=== PATIENT | male | born 1960 | race Caucasian/White ===

== ENCOUNTER → 2023-09-27 08:10 | Outpatient (REF) | payer OTHER, SELFPAY | LOC: DHCBC MAIN 08:10 | PROVIDERS: ATTENDING PHYSICIAN Internal Medicine Cardiovascular Disease; FAMILY PHYSICIAN Internal Medicine | DX: I10 Essential (primary) hypertension (principal) | CPT/HCPCS: 93306 ==

== ENCOUNTER 2023-12-24 13:51 | Inpatient (IN) | payer OTHER, SELFPAY ==
[2023-12-24] VITALS (39 sets, daily range): BP systolic 74–128; BP diastolic 40–107; BMI 26.3; BMI 26.9
[2023-12-24 11:31] LABS: Glucose - Point of Care 145 mg/dl (70-99)
--- NOTE | 2023-12-24 11:31 | ED.GENMED ---
History of Present Illness
<Elio Benson PA-C - Last Filed: 12/24/23 15:44>
General
Chief Complaint: Abdominal Symptoms
Time Seen by Provider: 12/24/23 11:23
Travel History
Have you had any contact with someone who has COVID-19?: No
Do you have any symptoms of coronavirus? Fever > 100 degrees, chills, cough, shortness of breath, sore throat, loss of taste or smell, muscle aches, or headache?: No
History of Present Illness
History of Present Illness:
63-year-old male with history of hypertension presents to the emergency department for evaluation of abdominal pain as well as intractable vomiting and diarrhea for the past 3 days. He states that he apparently began vomiting after eating because
of the on Sunday. Diarrhea began shortly thereafter. Has not been out of tolerating p.o. food or fluids. Has been trying to take his blood pressure medication vomiting after each dose. Currently reporting right upper quadrant abdominal pain. On
arrival to the ED he is notably pale and diaphoretic, hypotensive in triage.
Review of Systems
<Elio Benson PA-C - Last Filed: 12/24/23 15:44>
Review of Systems
Allergies reviewed?: Yes
All Other Systems: ROS reviewed and negative except as documented in HPI and ROS
Phy Exam
<Elio Benson PA-C - Last Filed: 12/24/23 15:44>
Physical Exam
Physical Exam:
GEN: Pale, diaphoretic, toxic appearing
Eyes: PERRLA, no scleral icterus
HENT: NCAT, oral mucosa dry
Lungs: Tachypnea, lungs clear to auscultation bilaterally
Cardiac: Tachycardic, regular
Abdomen: Peritonitic abdomen, tender throughout but focal tenderness to the right upper quadrant
Neuro: AO x 3
MSK: No gross deformity or ecchymosis. No edema. No digital clubbing
Skin: No rashes, petechiae. Generally pale
Psych: Calm, cooperative, proper hygiene
Course
<Elio Benson PA-C - Last Filed: 12/24/23 15:44>
Orders/Labs/Results
Orders:
Orders
12/24/23 Lunch
NPO
Allow oral meds: No
Allow clear liquids: No
Comment: mouth swabs for comfort
12/24/23 11:27
Electrocardiogram (*1) Urgent
Reason for Study: Other
Other Reason for Exam: sepsis
EKG- Treatment ONCE
Lactated Ringers [Lr] 2,000 ml IV BOLUS
Ondansetron Injectable [Zofran] 4 mg IV NOW STA
12/24/23 11:41
Type+Screen Urgent
Complete Blood Count/With Diff Urgent
Comprehensive Metabolic Panel Urgent
Lactic Acid Q4H
Comment: CANCEL 2nd LACTIC ACID IF 1st LACTIC ACID IS LESS THAN 2
Prothrombin Time Urgent
Blood Culture Q30M
ALESHIA Source: Blood/Venous
Specimen Description:
Blood Culture Q30M
ALESHIA Source: Blood/Venous
Specimen Description:
12/24/23 11:44
CT Abd/Pel (IV only)-[facility] only Urgent
Comment:
Reason For Exam: abd pain/vomiting/rigid abdomen
12/24/23 12:08
Piperacillin/Tazo 3.375 Gram [Zosyn] 3.375 gram in 50 ml IV NOW
12/24/23 12:27
Lactated Ringers [Lr] 750 ml IV BOLUS
12/24/23 12:35
Fentanyl Citrate/Pf [Sublimaze] 75 mcg IV NOW STA
12/24/23 12:39
Ondansetron Injectable [Zofran] 4 mg .ROUTE .STK-MED ONE
12/24/23 12:49
Ondansetron Injectable [Zofran] 4 mg IV NOW STA
12/24/23 12:53
Lactated Ringers [Lr] 1,000 ml IV BOLUS
12/24/23 13:00
NORepinephrine 4 MG/250 ML [Levophed] 4 mg in 250 ml IV PER PROTOCOL
Initial dose in mcg/min, then titrate:: 2
Titrate to keep:: MAP > 65 mmHg
Titrate by mcg/min:: 1-2 mcg/min
Frequency of titrations (minutes):: 5
Maximum dose in ICU in mcg/min:: 30
Maximum dose in IMU in mcg/min:: 8
Maximum dose in IVU in mcg/min:: 4
Begin to taper infusion when:: Remained at goal for 4hrs
Taper by mcg/min:: 1-2 mcg/min
Frequency of taper (minutes) if patient maintains goal:: 30
Taper to off?: Yes
If infusion off & no longer maintaining goal:: Contact Provider
12/24/23 13:02
Admit/Transfer Patient As Directed
Co-Sign Provider:
Level of Care: Inpatient admission
Assign to:: ICU
Physician / Group: Bl[facility]
Diagnosis: perforated appendicitis, ESTEFANÍA, septic shock.
Reason for Hospitalization: perforated appendicitis, ESTEFANÍA, septic shock - IV fluids, pressors, IV abx, surgery
Expected length of stay greater than two midnights?: Yes
ELOS- Estimated Length of Stay in days: 5
I certify the patient meets the requirements for IP care: Yes
12/24/23 13:04
Code Status As Directed
Resuscitation Status: Full Code
12/24/23 13:57
Bisacodyl [Dulcolax] 10 mg RECTAL [id number] PRN
Docusate W/Senna [Senokot-S] 1 tablet PO BIDPRN PRN
HYDROmorphone [Dilaudid] 0.5 mg IV Q4HPRN PRN
Polyethylene Glycol Powder [Miralax] 17 grams PO DAILYPRN PRN
12/24/23 13:57
Order Checker Consult Routine
Consulting Provider: Toshia Rutherford
Was physician already notified: Yes
SURGICAL CONSULT Routine
Consulting Provider: Edgar Hannah
Was physician already notified: Yes
Activity As Directed
Activity Level: As Tolerated
Bladder Scan As Directed
Follow Bladder Retention/Intermittent Cath Algorithm?: Yes
PRN if no void in __ hours: 6
Frequency: Per Retention Algorithm
If Bladder Scan Result >: 400
then:: Straight cath
Straight Cath As Directed
Frequency: Per Retention Algorithm
Additional Instructions: straight cath as needed per acute urinary retention algorithm for 24 hrs
Additional Instructions: for bladder scan greater than 400 mL
Vital Signs As Directed
Frequency: Per unit guidelines
DX Deep Vein Thrombosis Video Routine
12/24/23 14:00
Lactated Ringers [Lr] 1,000 ml IV 125 mls/hr
12/24/23 14:43
Urinalysis Reflex To Culture Urgent
Date Specimen was Collected: 12/24/23
Time Specimen was Collected: 14:31
12/24/23 14:49
Lactic Acid Q4H
Comment: CANCEL 2nd LACTIC ACID IF 1st LACTIC ACID IS LESS THAN 2
12/24/23 14:50
Basic Metabolic Panel Routine
12/24/23 20:00
Heparin 5,000 units SC Q12
Piperacillin/Tazo 2.25 Gram [Zosyn] 2.25 grams in 50 ml IV Q8H
12/25/23 06:00
Basic Metabolic Panel IN AM
Complete Blood Count/No Diff IN AM
12/26/23 06:00
Basic Metabolic Panel IN AM
Complete Blood Count/No Diff IN AM
12/27/23 06:00
Basic Metabolic Panel IN AM
Complete Blood Count/No Diff IN AM
12/28/23 06:00
Basic Metabolic Panel IN AM
Complete Blood Count/No Diff IN AM
12/29/23 06:00
Basic Metabolic Panel IN AM
Complete Blood Count/No Diff IN AM
12/30/23 06:00
Basic Metabolic Panel IN AM
Complete Blood Count/No Diff IN AM
12/31/23 06:00
Basic Metabolic Panel IN AM
Complete Blood Count/No Diff IN AM
Abnormal Lab Results
12/24/23 12/24/23
11:29 11:41
WBC 18.8 H 10^3/uL
(4.8-10.8)
MPV 11.1 H fL
(7.4-10.4)
Abs Immat Gran (auto) 0.2 H 10^3/uL
(0-0.05)
Absolute Neuts (auto) 17.1 H 10^3/uL
(1.4-6.5)
Absolute Lymphs (auto) 0.9 L 10^3/uL
(1.2-3.4)
Absolute Monos (auto) 0.7 H 10^3/uL
(0.1-0.6)
Immature Gran % 0.8 H %
(0-0.5)
Neutrophils % 90.7 H %
(42.2-75.2)
Lymphocytes % 4.6 L %
(20.5-51.1)
PT 17.3 H Sec
(11.4-14.6)
Sodium 134 L mmol/L
(135-145)
Chloride 91 L mmol/L
(98-107)
BUN 61 H mg/dl
(9-20)
Creatinine 6.5 H* mg/dL
(0.7-1.3)
Glucose 151 H mg/dl
(70-99)
Lactic Acid 3.9 H mmol/L
(0.7-2.0)
POC Glucose 145 H mg/dl
(70-99)
12/24/23 11:41
12/24/23 11:41
Vital Signs
Initial and Last Documented VS:
Initial Vital Signs
Pulse BP Pulse Ox
118 74/40 97
12/24/23 11:18 12/24/23 11:18 12/24/23 11:18
Last Documented Vital Signs
Temp Pulse Resp BP Pulse Ox
98.3 F 94 22 107/55 94
12/24/23 15:41 12/24/23 15:29 12/24/23 15:29 12/24/23 15:29 12/24/23 15:29
<Kelvin Ray MD - Last Filed: 12/24/23 14:10>
Orders/Labs/Results
Orders:
Orders
12/24/23 Lunch
NPO
Allow oral meds: No
Allow clear liquids: No
Comment: mouth swabs for comfort
12/24/23 11:27
Electrocardiogram (*1) Urgent
Reason for Study: Other
Other Reason for Exam: sepsis
EKG- Treatment ONCE
Lactated Ringers [Lr] 2,000 ml IV BOLUS
Ondansetron Injectable [Zofran] 4 mg IV NOW STA
12/24/23 11:41
Type+Screen Urgent
Complete Blood Count/With Diff Urgent
Comprehensive Metabolic Panel Urgent
Lactic Acid Q4H
Comment: CANCEL 2nd LACTIC ACID IF 1st LACTIC ACID IS LESS THAN 2
Prothrombin Time Urgent
Blood Culture Q30M
ALESHIA Source: Blood/Venous
Specimen Description:
Blood Culture Q30M
ALESHIA Source: Blood/Venous
Specimen Description:
12/24/23 11:44
CT Abd/Pel (IV only)-[facility] only Urgent
Comment:
Reason For Exam: abd pain/vomiting/rigid abdomen
12/24/23 12:08
Piperacillin/Tazo 3.375 Gram [Zosyn] 3.375 gram in 50 ml IV NOW
12/24/23 12:27
Lactated Ringers [Lr] 750 ml IV BOLUS
12/24/23 12:35
Fentanyl Citrate/Pf [Sublimaze] 75 mcg IV NOW STA
12/24/23 12:39
Ondansetron Injectable [Zofran] 4 mg .ROUTE .STK-MED ONE
12/24/23 12:49
Ondansetron Injectable [Zofran] 4 mg IV NOW STA
12/24/23 12:53
Lactated Ringers [Lr] 1,000 ml IV BOLUS
12/24/23 13:00
NORepinephrine 4 MG/250 ML [Levophed] 4 mg in 250 ml IV PER PROTOCOL
Initial dose in mcg/min, then titrate:: 2
Titrate to keep:: MAP > 65 mmHg
Titrate by mcg/min:: 1-2 mcg/min
Frequency of titrations (minutes):: 5
Maximum dose in ICU in mcg/min:: 30
Maximum dose in IMU in mcg/min:: 8
Maximum dose in IVU in mcg/min:: 4
Begin to taper infusion when:: Remained at goal for 4hrs
Taper by mcg/min:: 1-2 mcg/min
Frequency of taper (minutes) if patient maintains goal:: 30
Taper to off?: Yes
If infusion off & no longer maintaining goal:: Contact Provider
12/24/23 13:02
Admit/Transfer Patient As Directed
Co-Sign Provider:
Level of Care: Inpatient admission
Assign to:: ICU
Physician / Group: Bl[facility] Rosas - Hospitalists
Diagnosis: perforated appendicitis, ESTEFANÍA, septic shock.
Reason for Hospitalization: perforated appendicitis, ESTEFANÍA, septic shock - IV fluids, pressors, IV abx, surgery
Expected length of stay greater than two midnights?: Yes
ELOS- Estimated Length of Stay in days: 5
I certify the patient meets the requirements for IP care: Yes
12/24/23 13:04
Code Status As Directed
Resuscitation Status: Full Code
12/24/23 13:57
Bisacodyl [Dulcolax] 10 mg RECTAL [id number] PRN
Docusate W/Senna [Senokot-S] 1 tablet PO BIDPRN PRN
HYDROmorphone [Dilaudid] 0.5 mg IV Q4HPRN PRN
Polyethylene Glycol Powder [Miralax] 17 grams PO DAILYPRN PRN
12/24/23 13:57
Order Checker Consult Routine
Consulting Provider: Toshia Rutherford
Was physician already notified: Yes
SURGICAL CONSULT Routine
Consulting Provider: Edgar Hannah
Was physician already notified: Yes
Activity As Directed
Activity Level: As Tolerated
Bladder Scan As Directed
Follow Bladder Retention/Intermittent Cath Algorithm?: Yes
PRN if no void in __ hours: 6
Frequency: Per Retention Algorithm
If Bladder Scan Result >: 400
then:: Straight cath
Straight Cath As Directed
Frequency: Per Retention Algorithm
Additional Instructions: straight cath as needed per acute urinary retention algorithm for 24 hrs
Additional Instructions: for bladder scan greater than 400 mL
Vital Signs As Directed
Frequency: Per unit guidelines
DX Deep Vein Thrombosis Video Routine
12/24/23 14:00
Lactated Ringers [Lr] 1,000 ml IV 125 mls/hr
12/24/23 14:43
Urinalysis Reflex To Culture Urgent
Date Specimen was Collected: 12/24/23
Time Specimen was Collected: 14:31
12/24/23 14:49
Lactic Acid Q4H
Comment: CANCEL 2nd LACTIC ACID IF 1st LACTIC ACID IS LESS THAN 2
12/24/23 14:50
Basic Metabolic Panel Routine
12/24/23 20:00
Heparin 5,000 units SC Q12
Piperacillin/Tazo 2.25 Gram [Zosyn] 2.25 grams in 50 ml IV Q8H
12/25/23 06:00
Basic Metabolic Panel IN AM
Complete Blood Count/No Diff IN AM
12/26/23 06:00
Basic Metabolic Panel IN AM
Complete Blood Count/No Diff IN AM
12/27/23 06:00
Basic Metabolic Panel IN AM
Complete Blood Count/No Diff IN AM
12/28/23 06:00
Basic Metabolic Panel IN AM
Complete Blood Count/No Diff IN AM
12/29/23 06:00
Basic Metabolic Panel IN AM
Complete Blood Count/No Diff IN AM
12/30/23 06:00
Basic Metabolic Panel IN AM
Complete Blood Count/No Diff IN AM
12/31/23 06:00
Basic Metabolic Panel IN AM
Complete Blood Count/No Diff IN AM
Abnormal Lab Results
12/24/23 12/24/23
11:29 11:41
WBC 18.8 H 10^3/uL
(4.8-10.8)
MPV 11.1 H fL
(7.4-10.4)
Abs Immat Gran (auto) 0.2 H 10^3/uL
(0-0.05)
Absolute Neuts (auto) 17.1 H 10^3/uL
(1.4-6.5)
Absolute Lymphs (auto) 0.9 L 10^3/uL
(1.2-3.4)
Absolute Monos (auto) 0.7 H 10^3/uL
(0.1-0.6)
Immature Gran % 0.8 H %
(0-0.5)
Neutrophils % 90.7 H %
(42.2-75.2)
Lymphocytes % 4.6 L %
(20.5-51.1)
PT 17.3 H Sec
(11.4-14.6)
Sodium 134 L mmol/L
(135-145)
Chloride 91 L mmol/L
(98-107)
BUN 61 H mg/dl
(9-20)
Creatinine 6.5 H* mg/dL
(0.7-1.3)
Glucose 151 H mg/dl
(70-99)
Lactic Acid 3.9 H mmol/L
(0.7-2.0)
POC Glucose 145 H mg/dl
(70-99)
12/24/23 11:41
12/24/23 11:41
Vital Signs
Initial and Last Documented VS:
Initial Vital Signs
Pulse BP Pulse Ox
118 74/40 97
12/24/23 11:18 12/24/23 11:18 12/24/23 11:18
Last Documented Vital Signs
Temp Pulse Resp BP Pulse Ox
98.3 F 94 22 107/55 94
12/24/23 15:41 12/24/23 15:29 12/24/23 15:29 12/24/23 15:29 12/24/23 15:29
<Elio Benson PA-C - Last Filed: 12/24/23 15:44>
MDM/Problems Addressed
MDM/Problems Addressed:
63-year-old male presents the emergency department Acutely ill with a peritonitic abdomen, workup reveals acute perforated appendicitis with paralytic ileus. NG tube was placed for decompression. The patient received aggressive IV fluid
resuscitation was started promptly on vasopressors due to acute kidney injury that is likely hypovolemic shock in nature. General surgery was made aware, patient was taken for urgent operative intervention and admitted to the intensive care unit
<Elio Benson PA-C - Last Filed: 12/24/23 15:44>
*Critical Care Note
Total Time (30-74mins, 75-104mins- exclusive of procedures): 85 minutes
comment:
Critical care time: 85 minutes
Critical care time was exclusive of: Separately billable procedures, treating other patients, and teaching time
Critical care was necessary to treat or prevent imminent or life-threatening deterioration of the following conditions: Acute perforated appendicitis/septic shock
Critical care time spent personally by me on the following activities:
[x] Review of old charts
[x] Obtaining history from patient or surrogate
[x] Ordering and review of the laboratory studies
[x] Ordering and review of radiographic studies
[x] Ordering and performing treatments and interventions
[x] Patient patient's response to treatment
[x] Development of treatment plan with patient or surrogate
ED Attending Note
<Elio Benson PA-C - Last Filed: 12/24/23 15:44>
-
Portions of this chart may have been created with voice recognition software.� Occasional wrong word or��sound alike� substitutions may have occurred due to the inherent limitations of voice recognition software.
<Kelvin Ray MD - Last Filed: 12/24/23 14:10>
ED Attending Note
I performed the substantive portion of visit, reviewed & personally made and approve the management plan that is documented in note by myself or ZACHARY.: Yes
ED Attending Note:
History, exam, and CT scan consistent with perforated appendix. Patient given multiple boluses of fluids, secondary to severe hypotension, likely secondary to dehydration from ongoing symptoms, as reflected in his blood work. Initial hypotension
initially improved with IV fluids. However, patient afterwards noted to have decreased blood pressure, requiring start of Levophed for blood pressure support.
Surgery, Dr. Hannah, notified. Pt will be admitted to ICU.
Discharge Plan
Departure
Patient Disposition: Admit
Date of Disposition: 12/24/23
Time of Disposition: 12:27
Admit to: ICU
Presentation/result/management discussed w/ accepting MD/DO: Hospitalist
Discharge Problem:
Acute perforated appendicitis, Paralytic ileus, Acute renal failure, Acidosis, lactic
Interventions
Interventions:
*Risk Screen - Suicide Last Done: 12/24/23 13:23
*General Assessment Last Done: 12/24/23 13:23
*Neglect/Abuse Screening Last Done: 12/24/23 13:23
ED- Fall Risk Assessment Last Done: 12/24/23 13:23
*ED COVID-19 Vaccine History Last Done: 12/24/23 15:22
*Nursing Disposition Last Done: 12/24/23 14:12
FB-Wrgyiq-Yulvcapxnm Assessment Last Done: 12/24/23 13:23
Discharge Date and Time
Discharge Date/Time: 12/24/23 14:15
[2023-12-24] MEDS: LR 2000 IV (11:43)
[2023-12-24] MEDS: ZOFRAN 4 MG IV ×2 (11:43→12:49)
[2023-12-24 11:52] LABS: % Basophils 0.3 % (0-2); % Immature Granulocytes 0.8 % (0-0.5); % Lymphocytes 4.6 % (20.5-51.1); % Monocytes 3.6 % (1.7-9.3); % Neutrophils 90.7 % (42.2-75.2); Absolute Basophils 0.1 10^3/uL (0-0.2); Absolute Immature Granulocytes 0.2 10^3/uL (0-0.05); Absolute Lymphocytes 0.9 10^3/uL (1.2-3.4); Absolute Monocytes 0.7 10^3/uL (0.1-0.6); Absolute Neutrophils 17.1 10^3/uL (1.4-6.5); Hematocrit 40.9 % (39.0-52.0); Hemoglobin 14.7 g/dL (13.0-18.0); Mean Corp Hgb Conc. 35.9 g/dL (33.0-37.0); Mean Corpuscular Hgb 30.8 pg (27.0-31.0); Mean Corpuscular Volume 85.7 fL (80.0-94.0); Mean Platelet Volume 11.1 fL (7.4-10.4); Nucleated Red Blood Cells % 0 % (-); Platelet Count 188 10^3/uL (130-400); Red Blood Cell Count 4.77 10^6/uL (4.70-6.10); Red Cell Dist. Width 13.3 % (11.5-14.5); White Blood Cell Count 18.8 10^3/uL (4.8-10.8)
[2023-12-24 12:03] LABS: INR 1.44; PT 17.3 Sec (11.4-14.6)
[2023-12-24 12:04] LABS: Lactic Acid 3.9 mmol/L (0.7-2.0)
[2023-12-24 12:13] LABS: ALT (SGPT) 28 U/L (0-50); AST (SGOT) 38 U/L (17-59); Albumin 4.6 g/dl (3.5-5.0); Alkaline Phosphatase 56 U/L (38-126); Blood Urea Nitrogen 61 mg/dl (9-20); Calcium 9.4 mg/dl (8.4-10.2); Carbon Dioxide 25 mmol/L (22-30); Chloride 91 mmol/L (98-107); Glucose 151 mg/dl (70-99); Potassium 4.6 mmol/L (3.5-5.1); Sodium 134 mmol/L (135-145); Total Bilirubin 0.9 mg/dl (0.2-1.3); Total Protein 7.8 g/dl (6.3-8.2); eGFR 8.89
[2023-12-24] MEDS: ZOSYN 50 IV ×3 (12:34→23:13)
[2023-12-24] MEDS: SUBLIMAZE 75 MCG IV (12:43)
--- NOTE | 2023-12-24 12:51 | HPS.HSE ---
Family Physician
-
Family Physician:
Chief Complaint
-
abd pain, chills
History of Present Illness
63 y/o M hx of HTN, presents to ER for abd pain, n/v. at bedside reports the history. PAtient began with abdominal pain (Right sided) along with nausea/vomiting on Sunday. Initially he and family attributed the symptoms to a GI bug or food
poisoning. He was vomiting immediately after eating. into Sunday, he developed diarrhea and his oral intake started to decrease. By Sunday he was very tired, lethargic and had fever/chills. He was unable to take his home meds for 3 days.
brought him to ER this morning and he was visibly weak, pale and diaphoretic
ER workup revealed ESTEFANÍA, sepsis and imaging revealed perforated appendix.
Medical History
Past Medical History
Past Medical History: Reports HTN
Past Surgical History: Reports None
Social History
Tobacco: Non-smoker
Alcohol: Occasional
Drug: None
Personal:
Living: With Family
Family History
Family History: Not pertinent
Allergies / Home Medications
Allergies reflects when Allergies were last updated in [employer].
Home Medications with original date entered in [employer]
Allergy/Medication List:
Allergies
Allergy/AdvReac Type Severity Reaction Status Date / Time
bee venom protein (honey bee) Allergy Swelling Verified 12/25/22 12:49
No Known Drug Allergies Allergy NA Verified 12/25/22 12:49
Home Medications
carvedilol 12.5 mg tablet 12.5 mg PO BID 12/20/22
lisinopril 10 mg tablet 10 mg PO BID 12/20/22
spironolactone 25 mg tablet 12.5 mg PO DAILY 12/20/22
aspirin 81 mg tablet,delayed release 81 mg PO DAILY 12/24/23
qtbhvqqs-ilzmqgfu-omwt 8 mg-folic ac 400 mcg-vit K 10 mcg chew tablet (Centrum Chewables) 1 tab PO DAILY 12/24/23
Review of Systems
-
A 12 point ROS was completed and negative except as noted: Yes
Physical Exam
Vital Signs
Vital Signs
Pulse BP Pulse Ox
118 74/40 97
12/24/23 11:18 12/24/23 11:18 12/24/23 11:18
Physical Exam
General: Appears in Distress and Pain
HEENT: NormoCephalic, Anicteric and Other (+ NG Tube in place)
Respiratory: No Wheezes
Cardiac: S1/S2, Regular Rhythm and Tachycardia
GI: Tender and Distended
Neuro: AO x 3
Psych: Calm
Laboratory Results
-
12/24/23 11:41
12/24/23 11:41
Laboratory Results
PT 17.3 Sec (11.4-14.6) H 12/24/23 11:41
INR 1.44 12/24/23 11:41
Lactic Acid 3.9 mmol/L (0.7-2.0) H 12/24/23 11:41
Total Bilirubin 0.9 mg/dl (0.2-1.3) 12/24/23 11:41
AST 38 U/L (17-59) 12/24/23 11:41
ALT 28 U/L (0-50) 12/24/23 11:41
Alkaline Phosphatase 56 U/L (38-126) 12/24/23 11:41
Data Reviewed
-
Critical Care Time (in minutes): 62
CT Scan: Report Reviewed by me, Discussed with Patient and Discussed with Family
Lab Data: Labs Reviewed by me, Discussed with Patient and Discussed with Family
Impression/Plan
-
Assessment:
Severe sepsis with shock (tachycardia, leukocytosis, lactic acidosis, perforated appendicitis) POA
Perforated appendicitis
- CT: Findings suspicious for acute appendicitis in the right lower quadrant with findings also suspicious for accompanying small contained perforation. No findings to confirm free intraperitoneal air. Accompanying small bowel dilatation with
air-fluid levels most likely representing ileus, cannot exclude partial distal small bowel obstruction.
- Aggressive sepsis protocol IVF; follow lactate levels
- on Levophed; wean pressors as able
- IV Zosyn empirically
- keep NPO with NGT in place
- anti-emetics
- GS consulted; too high risk for surgery due to acute medical comorbidities
- ICU consult
Severe dehydration with acute life threatening ESTEFANÍA
- hold nephrotoxins
- check bladder scans
- aggressive IVF
- repeat BMP at 4pm
- of note; did receive IV Contrast for emergent CT
Essential HTN
- hold BP Meds
DVT ppx: SC heparin
Code: Full
Total Critical Care Time 62 minutes. I was immediately available to the patient and staff. I personally examined, reviewed labs, diagnostic images/reports, interpretations, treatment plans, discussed patient care with other providers and family or
caregivers (if patient is unable to make decisions), entered orders as appropriate and documented the medical record.
[2023-12-24] MEDS: LEVOPHED 250 IV ×2 (12:57→22:53)
[2023-12-24] MEDS: LR 1000 IV ×4 (12:59→20:15)
--- NOTE | 2023-12-24 14:13 | CON.INTV ---
Consultation
Consultation Request
Date/Time Consultation Requested: 12/23
Date/Time Consultation Performed: 12/23
Reason for Consultation: Critical care
Medical History
-
History of Present Illness:
History obtained from the patient, , reviewing inpatient and outpatient records. 63-year-old male with history of hypertension, left bundle branch block, cardiomyopathy EF 40% whose history dates back to 12/20 when he developed nausea/emesis
after eating a meatball hoagie at night. He thought it was food poisoning. Throughout the weekend his symptoms persisted, unable to keep down liquids or food. He had shaking chills over the weekend, not aware of any obvious fevers. He had some
mild diarrhea on Sunday but no bowel movement since. Denies any blood in urine or stool, chest pain, shortness of breath, arm pain, jaw pain, lightheadedness. He has not been urinating over the last 3 days. His recommended hospital
evaluation but he refused. He was finally convinced to come in and get checked out today. Upon arrival to [facility], he was found to be diaphoretic, pale, hypotensive with systolic pressure in the 70s. He was given IV fluids, CT abdomen
which confirmed acute appendicitis with contained perforation. He was given IV Zosyn, required initiation of norepinephrine. Patient was admitted to ICU for further management.
Upon arrival to the ICU, patient subjectively feels much better, less distended, less abdominal pain. NG tube in place. He is conversant without complaints at this time except for discomfort from NG tube
.
PMH: Hypertension, left bundle branch block, history of hernia repair
Past Medical History
Past Medical History: None (See above)
Past Surgical History: None (See above)
Social History
Tobacco: Smoker (Continues to smoke half a pack a day, 25+ pack-year history)
Alcohol: Occasional
Drug: None
Personal:
Living: With Family
Employment: Employed (attorney lawyer)
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
Family History
Family History: Other (Mother from lung cancer age 57, father from heart disease age 80. Father also had colon cancer. 2 children healthy. Siblings healthy)
Allergies / Home Medications
Allergies
Allergy/AdvReac Type Severity Reaction Status Date / Time
bee venom protein (honey bee) Allergy Swelling Verified 12/25/22 12:49
Home Medications
�Medication �Instructions �Recorded �Confirmed �Last Taken �Type
carvedilol 12.5 mg tablet 12.5 mg PO BID Heart 12/20/22 12/24/23 12/21/23 History
Disease/Condition
lisinopril 10 mg tablet 10 mg PO BID Blood Pressure 12/20/22 12/24/23 12/21/23 History
spironolactone 25 mg tablet 12.5 mg PO DAILY Heart 12/20/22 12/24/23 12/21/23 History
Disease/Condition
aspirin 81 mg tablet,delayed 81 mg PO DAILY Blood Clot 12/24/23 12/24/23 12/21/23 History
release Prevention/Tx
ngpgylcs-jcifomnd-kvtn 8 mg-folic 1 tab PO DAILY Supplement 12/24/23 12/24/23 12/21/23 History
ac 400 mcg-vit K 10 mcg chew
tablet (Centrum Chewables)
Review of Systems
-
All other systems: Negative unless noted
Vitals / Labs / Diagnostic Testing
Vital Signs
Temp Pulse Resp BP Pulse Ox
97.9 F 90 18 96/46 96
12/24/23 12:30 12/24/23 13:45 12/24/23 13:45 12/24/23 13:41 12/24/23 13:45
Lab Data
12/24/23 11:41
Laboratory Results
12/24/23
11:41
PT 17.3 H
INR 1.44
Diagnostic Testing:
Physical Exam
-
HEENT: Normocephalic and Anicteric
Cardiovascular: S1/S2, Regular Rhythm (Mildly tachycardic), Murmur (n), Rub (n) and Peripheral Edema (n)
Respiratory: Wheeze (n), Rales (n), Rhonchi (few with cough) and Non-Labored Respirations
GI: Soft, Non Distended and Tender (Mild tenderness, no obvious rebound or guarding)
Neurology: Awake, Alert, Oriented and No Motor Deficits (Moves all extremities)
Skin: Other (Lower extremities warm, pulses 2+. Radial pulse 2+. Capillary refill less than 2 seconds)
General: Comfortable
Assessment
-
63-year-old male with history of hypertension, left bundle branch block, cardiomyopathy EF 40%, presents with 3 days of nausea/emesis, subjective fevers. Upon arrival, found to be hypotensive, with leukocytosis. Imaging confirmed acute
appendicitis possible contained perforation. Patient was given IV fluids, IV antibiotics admitted to ICU for further management 12/24/2023
Acute appendicitis
Contained perforation per imaging
Hypotension, septic shock
Leukocytosis
Hyponatremia
Conditions present prior to admission
Hypertension
Nonischemic cardiomyopathy, EF 40%
Left bundle branch block
cardiac catheterization 2017 normal
History of neurofibromatosis
25+ pack years to smoking, ongoing
Family history of lung cancer (mother 57)
Plan/recommendations
At this time, patient remains critically ill
Abdomen according to patient is less distended, NG tube in place, bilious output noted
Abdominal imaging confirms perforated appendix, suspected contained perforation
Abdomen is minimally distended, no rebound or guarding, except for some mild tenderness on the right side
EKG with left bundle branch block, chronic
Moving forward
Continue with IV fluid resuscitation, received 3 L of lactated Ringer's
Continue with IV fluids, fourth liter ordered
Systolic pressure presently in the 80s, radial pulses intact, capillary refill less than 2 sec
Continue with norepinephrine, second pressor as needed
Cardiomyopathy is noted
Had recent cardiology evaluation as outpatient October 2023
Left bundle branch block is stable, cardiac catheterization 2016 normal
PICC line
Repeat labs, follow creatinine
Bladder scan, Hu catheter as needed
Continue broad-spectrum antibiotics
Reviewed with critical care nursing, primary service
Reviewed with
Remains critically ill, high risk situation
TCCT 35 min
[2023-12-24 15:12] LABS: Urine Albumin 1+ (Neg - Trace); Urine Bilirubin 1+ (Negative); Urine Character Slightly Cloudy (Clear); Urine Color Yellow; Urine Glucose Negative (Negative); Urine Ketone Negative (Negative); Urine Leukocyte Trace (Negative); Urine Nitrite Negative (Negative); Urine Occult Blood 4+ (Negative); Urine Urobilinogen Negative (Neg - 1+)
[2023-12-24 15:38] LABS: Blood Urea Nitrogen 64 mg/dl (9-20); Calcium 8.4 mg/dl (8.4-10.2); Carbon Dioxide 25 mmol/L (22-30); Chloride 94 mmol/L (98-107); Estimated Creatinine Clearance 16 ml/min; Glucose 135 mg/dl (70-99); Potassium 4.3 mmol/L (3.5-5.1); Sodium 131 mmol/L (135-145); eGFR 12.18
[2023-12-24 16:05] LABS: B.E. 1.2 mmol/L; O2 Saturation % 97.5 % (94-98); PCO2 36 mmHg (35-48); PO2 78 mmHg (83-108); pH 7.45 (7.35-7.45)
[2023-12-24 16:07] LABS: Urine Bacteria Many (Negative); Urine Red Blood Cell 26-30 /HPF (0-2)
[2023-12-24 16:13] LABS: Urine Mucus Moderate
[2023-12-24 16:15] LABS: Urine Hyaline Cast >15 /LPF (0-2)
--- NOTE | 2023-12-24 17:51 | CON.GS ---
Consultation
-
Date/Time Consultation Requested: 12/24/2023 3:30
Date/Time Consultation Performed: 12/24/2023 3:30
Requesting Provider: ED
Performing Provider: Dr. Hannah
Reason for Consultation: Perforated appendicitis
Medical History
-
Chief Complaint: Right lower quadrant abdominal pain
History of Present Illness:
This is a 63-year-old male with a history of hypertension, CAD, heart failure with preserved EF, robotic bilateral NIMA inguinal hernia repairs with XL mesh (Dr. Cano) who presents with a 3-day history of periumbilical and right-sided abdominal
pain with associated nausea vomiting as well as some diarrhea concerning for a GI bug or food poisoning initially however as the vomiting worsened as well as the pain he decided to come in to be evaluated. He was tachycardic and hypotensive on
arrival. He had an elevated lactate 3.9 as well as a leukocytosis to 18.8. Of note he had a serum creatinine of 6.5 from a baseline of 1.2. A CT scan was performed which demonstrated a perforated appendicitis in the right lower quadrant with a
few foci of free air scattered throughout predominantly along the right side. General surgery was consulted to evaluate and help manage this patient.
Past Medical History
Past Medical History: CAD and HTN
Past Surgical History: Hernia Repair
Social History
Alcohol: None
Drug: None
Personal:
Family History
Family History: Reviewed & Not Pertinent
Allergies / Home Medications
Allergy/AdvReac Type Severity Reaction Status Date / Time
bee venom protein (honey bee) Allergy Swelling Verified 12/25/22 12:49
�Medication �Instructions �Recorded �Confirmed �Type
carvedilol 12.5 mg tablet 12.5 mg PO BID Heart 12/20/22 12/24/23 History
Disease/Condition
lisinopril 10 mg tablet 10 mg PO BID Blood Pressure 12/20/22 12/24/23 History
spironolactone 25 mg tablet 12.5 mg PO DAILY Heart 12/20/22 12/24/23 History
Disease/Condition
aspirin 81 mg tablet,delayed 81 mg PO DAILY Blood Clot 12/24/23 12/24/23 History
release Prevention/Tx
zjjrhcuz-drcftqia-chuy 8 mg-folic 1 tab PO DAILY Supplement 12/24/23 12/24/23 History
ac 400 mcg-vit K 10 mcg chew
tablet (Centrum Chewables)
Review of Systems
-
All other systems: Negative unless noted
A 10 point review of systems was completed, and was negative except as per HPI.
Physical Exam
Vital Signs
Temp Pulse Resp BP Pulse Ox
98.3 F 95 22 111/56 93
12/24/23 15:41 12/24/23 16:30 12/24/23 16:30 12/24/23 16:30 12/24/23 16:30
12/23/23 12/24/23 12/25/23
06:59 06:59 06:59
Actual Weight 89.8 kg
Body Mass Index (BMI) 26.9
Lab Results
12/24/23 11:41
12/24/23 14:50
WBC 18.8 10^3/uL (4.8-10.8) H 12/24/23 11:41
Hgb 14.7 g/dL (13.0-18.0) 12/24/23 11:41
Hct 40.9 % (39.0-52.0) 12/24/23 11:41
Plt Count 188 10^3/uL (130-400) 12/24/23 11:41
Abs Immat Gran (auto) 0.2 10^3/uL (0-0.05) H 12/24/23 11:41
Neutrophils % 90.7 % (42.2-75.2) H 12/24/23 11:41
Physical Exam
General: Well Developed
HEENT: Normocephalic
Respiratory: Non Labored Respirations
Cardiac: S1/S2
GI: Tender (Diffusely tender to palpation) and Distended
Data Reviewed
-
CT Scan: Image Personally Visualized and interpreted, Report Reviewed by me, Discussed with Physician, Discussed with Patient and Discussed with Family
Critical Care Time (in minutes): 10
Total Time Spent with Patient (in minutes): 30
Assessment / Plan
-
This is a 63-year-old male with a history of a robotic bilateral inguinal hernia repair 1 year ago who presents with right lower quadrant pain, tachycardia, hypotension, leukocytosis and diffuse peritonitis on exam with CT imaging concerning for
perforated appendicitis and clinically severe sepsis with shock.
Admit patient to ICU for volume resuscitation.
N.p.o., IV fluids, IV antibiotics.
Given the diffuse nature of his pain, we will move forward with the urgent laparoscopic possible open appendectomy today. Patient and his updated in the room, given his CT findings he is a high risk for conversion to open as well as cecectomy
or ileocecectomy with drain placement.
Risks/Benefits/Alternatives, expected postoperative course and possible complications (bleeding, infection, injury to surrounding structures, acute/chronic pain) discussed at length. Patient wishes to proceed with surgery. All questions answered.
Consent obtained.
I spent roughly 75 minutes in total for the care of this patient today including direct patient care and counseling, reviewing labs, imaging, coordination of care, as well as documentation.
--- NOTE | 2023-12-24 18:05 | W.SUR.PREOP ---
Pre-Operative Surgical Note
-
I have examined this patient prior to the performance of the scheduled procedure.
The patient's condition is unchanged from the time of the current History and
Physical and the patient is able to undergo the scheduled procedure.
--- NOTE | 2023-12-24 18:28 | PTCARENOTE ---
Update with Family in and out at bedside. Surgery, hospitalist, and tanner rotary drum continuous process teams in and out to work with patient. Prep and sent to OR. IVF at 125ml/hr. Levophed at 12mcg/min. Antibiotics as ordered. Repeat lab trends and follow up assessment
ongoing. NGT with 750ml out this shift. Continue follow up input and output. Urine output voiding 750ml dark simeon, specimen sent as ordered. Await post op critical care follow for post op recovery course. Continue with teaching and supportive
cares.
--- NOTE | 2023-12-24 19:22 | W.IMMPOSTOP ---
Surgical Immed Post Op Note
-
Primary Surgeon: Edgar Hannah MD
Assisting Surgeon: Kanu Stevens MD
Pre-op Diagnosis: Perforated appendicitis
Post-op Diagnosis: Same
Procedure Performed:
1. Laparoscopic appendectomy
2. Intra-abdominal washout
Anesthesia Type: General
Specimen / Cultures: Appendix for pathology and tissue culture.
Estimated Blood Loss: 11 cc
Complications: None
Operative Findings: Perforated appendicitis with 3 small stool balls in the right lower quadrant near the base however the to base of the appendix was identified and appeared healthy enough that it was ligated with 2-0 PDS Endoloops. There was
prashant purulence in the pelvis right lower quadrant and up the right colic gutter which was irrigated and suctioned until clear. 19 Sami round Allen drain was inserted via the left lower quadrant port passed into the pelvis and up the right colic
gutter, this was secured at the skin with a 2-0 nylon suture. An additional 5 mm port was placed in the right upper quadrant to assist with exposure.
POST OP PLAN:
Imaging: None
Labs: Routine AM
Diet: N.p.o., NG tube to low intermittent wall suction. Expect prolonged ileus
Analgesia: Tylenol 650mg q6 Raymundo, Dilaudid 0.5mg q2h PRN, hold off on Toradol due to creatinine.
Neuro/vascular checks: q4h
AC/AP: Hold Therapeutic AC, Ok for DVT PPx
Activity: Ad Emerald
Wound/Incisions/Drains: Routine, CÉSAR to bulb suction.
Abx: Continue antibiotics x 7 days, follow-up cultures.
Dispo: ICU. updated over the phone.
--- NOTE | 2023-12-24 20:00 | PTCARENOTE ---
Received pt directly back from OR post Lap Appy and drainage of abscess. Pt easily arousable to voice, AAOx3. HR in the low 100's ST with BBB and PVC's on the monitor. POX 96% on Simple mask with 8 LO2. Lungs dec @ bases. Occasional moist non
productive cough. Oral care provided. Left nare NGT to LIS, draining dark brown drainage. + bowel, round tender abd. LLQ CÉSAR drain in place draining serosanguineous drainage. Dressing intact. 3 lap sites open to air with surg glue. PT reports pain at
tolerable level at this time. Hu cath in place draining yellow urine. Pale skin. Left radial Yoli in place. Left AC int infusing LR @125ml/hr as ordered. Right forarm int in place infusing Levophed to keep MAP >65. at bedside staying the
night. Call adams in place. Will continue to monitor.
[2023-12-24] MEDS: HEPARIN 5000 UNITS SC (20:20)
[2023-12-24 21:01] LABS: B.E. 4.2 mmol/L; HCO3 28.4 mmol/L (21-28); Ionized Calcium 1.02 mMOL/L (1.15-1.33); O2 Saturation % 99.6 % (94-98); PCO2 40 mmHg (35-48); PO2 115 mmHg (83-108); Potassium 4.1 mMOL/L (3.5-5.1); Sodium 133 mMOL/L (136-145); pH 7.46 (7.35-7.45)
[2023-12-24 21:01] LABS: Hematocrit 30.6 % (39.0-52.0); Hemoglobin 11.2 g/dL (13.0-18.0); Mean Corp Hgb Conc. 36.6 g/dL (33.0-37.0); Mean Corpuscular Hgb 30.9 pg (27.0-31.0); Mean Corpuscular Volume 84.3 fL (80.0-94.0); Platelet Count 166 10^3/uL (130-400); Red Blood Cell Count 3.63 10^6/uL (4.70-6.10); Red Cell Dist. Width 13.2 % (11.5-14.5); White Blood Cell Count 9.6 10^3/uL (4.8-10.8)
[2023-12-24 21:13] LABS: Lactic Acid 0.9 mmol/L (0.7-2.0)
[2023-12-24 21:16] LABS: Blood Urea Nitrogen 64 mg/dl (9-20); Calcium 7.7 mg/dl (8.4-10.2); Carbon Dioxide 24 mmol/L (22-30); Chloride 97 mmol/L (98-107); Estimated Creatinine Clearance 22 ml/min; Glucose 123 mg/dl (70-99); Potassium 3.9 mmol/L (3.5-5.1); Sodium 132 mmol/L (135-145); eGFR 17.49
[2023-12-24] MEDS: CALCIUM CHLORIDE 10% SYRINGE 60 MG IV (22:07)
[2023-12-24] MEDS: DILAUDID 0.5 MG IV (22:14)
--- NOTE | 2023-12-24 22:27 | PTCARENOTE ---
Pt complaining of pain, especially penile pain from ferreira. PRN Pain medication administered as ordered. Levophed continues to be titrated to keep MAP >65. remains at bedside. Will continue to monitor.
[2023-12-24] MEDS: LR 500 IV (23:13)
[2023-12-25] VITALS (24 sets, daily range): BP systolic 93–135; BP diastolic 48–64; BMI 26.3
[2023-12-25] MEDS: LEVOPHED 250 IV ×2 (02:32→06:34)
--- NOTE | 2023-12-25 04:00 | PTCARENOTE ---
Pt awake intermittently t/o the night. Pt reports pain at tolerable level. Vital signs stable. Levophed titrated to keep MAP>65. IVF infusing as ordered. Pt positioned per comfort. remains at bedside. No other changes in assessment noted at
this time. WIll continue to monitor.
[2023-12-25 04:34] LABS: Hematocrit 31.4 % (39.0-52.0); Hemoglobin 11.2 g/dL (13.0-18.0); Mean Corp Hgb Conc. 35.7 g/dL (33.0-37.0); Mean Corpuscular Hgb 30.9 pg (27.0-31.0); Mean Corpuscular Volume 86.7 fL (80.0-94.0); Mean Platelet Volume 11.4 fL (7.4-10.4); Platelet Count 186 10^3/uL (130-400); Red Blood Cell Count 3.62 10^6/uL (4.70-6.10); White Blood Cell Count 9.5 10^3/uL (4.8-10.8)
[2023-12-25] MEDS: ZOSYN 50 IV ×4 (05:03→23:35)
[2023-12-25 05:08] LABS: Blood Urea Nitrogen 56 mg/dl (9-20); Calcium 8.5 mg/dl (8.4-10.2); Carbon Dioxide 26 mmol/L (22-30); Chloride 98 mmol/L (98-107); Estimated Creatinine Clearance 28 ml/min; Glucose 160 mg/dl (70-99); Potassium 4.3 mmol/L (3.5-5.1); Sodium 130 mmol/L (135-145); eGFR 23.42
[2023-12-25] MEDS: LR 1000 IV ×2 (05:17→15:30)
--- NOTE | 2023-12-25 07:46 | W.PN.ANS.POP ---
Anesthesia Post Operative
- Anesthesia Post Op Note
Vital Signs Stable-See Nursing Note: Yes
Airway Patent: Yes
Adequate Pain Control: Yes
Change in Mental Status: No
Current Postoperative Nausea & Vomiting: No
Anesthesia Complications: No
General Anesthetic Recall: No
Unplanned Admission: No
Post Op Hydration Adequate: Yes
--- NOTE | 2023-12-25 08:04 | W.PN.INTV ---
Today's Communication / Plan
Recommendations
IV fluid bolus
Follow NG output, continue pressors, wean as able
Mechanical and pharmacological DVT prophylaxis
Replete magnesium
Follow oxygenation, cardiomyopathy noted
Creatinine improving. Hu catheter remains
Assessment
-
63-year-old male with history of hypertension, left bundle branch block, cardiomyopathy EF 40%, presents with 3 days of nausea/emesis, subjective fevers. Upon arrival, found to be hypotensive, with leukocytosis. Imaging confirmed acute
appendicitis possible contained perforation. Patient was given IV fluids, IV antibiotics admitted to ICU for further management 12/24/2023
Acute appendicitis
Contained perforation per imaging
S/p laparoscopic appendectomy, intra-abdominal washout 12/25/2023
Hypotension, septic shock
Leukocytosis
Hyponatremia
Acute renal insufficiency
Admission creatinine 6.5
Conditions present prior to admission
Hypertension
Nonischemic cardiomyopathy, EF 40%
Left bundle branch block
cardiac catheterization 2016 normal
History of neurofibromatosis
25+ pack years to smoking, ongoing
Family history of lung cancer (mother 57)
Plan/recommendations
At this time, patient remains critically ill, on norepinephrine
Significant NG output noted
Despite IV fluids, multiple IV fluid boluses, negative fluid status noted
Creatinine improving, urine output adequate
EKG with left bundle branch block, chronic
Moving forward
Continue with IV fluid resuscitation, will give additional bolus of LR, continue with maintenance fluids
Remains on norepinephrine, wean as able
Follow I's and O's, maintain at least equivalent/positive fluid status as long as oxygenation adequate
NG tube remains in place, n.p.o.
Cardiomyopathy is noted
Had recent cardiology evaluation as outpatient October 2023
Left bundle branch block is stable, cardiac catheterization 2016 normal
Repeat labs, follow creatinine
Hu catheter in place
Replete magnesium
Continue broad-spectrum antibiotics
DVT prophylaxis: Sequential teds and subcutaneous heparin GI prophylaxis: Not indicated
Reviewed with critical care nursing, primary service, pharmacy, case management
Reviewed with at bedside
TCCT 35 min
Subjective Dataa
Subjective Data
Date of Service:
Date of Service: December 25, 2023
Subjective:
Patient remains critically ill, events overnight noted. Underwent appendectomy, washout for perforated viscus. Patient remains on norepinephrine drip. Urine output adequate, creatinine trending down. CÉSAR drain in place, NG tube output greater
than 2 L
Objective Data
Data Reviewed
Vital Signs / I&O / Oxygen:
Vital Signs
Temp Pulse Resp BP Pulse Ox
98.3 F 78 18 123/54 95
12/25/23 03:30 12/25/23 05:15 12/25/23 05:15 12/25/23 05:14 12/25/23 05:15
Intake and Output
12/24/23 12/25/23 12/26/23
06:59 06:59 06:59
Intake Total 4460.0 / 4460.0
Output Total 5335 / 5335
Balance -875.0 / -875.0
SaO2 95
Nasal Cannula flow liters per 4
minute
Physical Exam
General: Comfortable and Other (Upper extremity A-line)
HEENT: Normocephalic and Anicteric
Cardiovascular: S1-S2, Regular Rhythm, Murmur (n) and Rub (n)
Respiratory: Wheeze (n), Crackles (n), Rhonchi (n), Non-Labored Respirations and Other (Mild splinting)
GI: Soft, Non Distended, Tender (Mild rebound) and Other (CÉSAR drain in place, dressing intact)
Neurology: Awake, Alert and No Motor Deficits
Skin: Cyanosis (n), Jaundice (n) and Rash (n)
Labs/Micro/Reports
Lab Data
12/25/23 04:04
05/07/24 04:04
Laboratory Results
12/24/23 12/24/23 12/24/23
11:41 15:49 20:45
PT 17.3 H
INR 1.44
pH 7.45 7.46 H
pCO2 36 40
pO2 78 L 115 H
HCO3 25.0 28.4 H
O2 Delivery Level
[2023-12-25] MEDS: HEPARIN 5000 UNITS SC ×3 (08:09→22:23)
[2023-12-25] MEDS: OFIRMEV 100 IV ×2 (09:13→15:31)
[2023-12-25 09:16] LABS: Magnesium 1.7 mg/dl (1.6-2.3)
--- NOTE | 2023-12-25 10:34 | CM ---
CM following re: discharge planning.
Reviewed pt's chart, met with pt and pt's spouse at bedside.
Pt is a 63 year old male, admitted with primary dx of Perforated appendicitis. Laparoscopic appendectomy and Intra-abdominal washout procedure performed yesterday.
Pt reports he lives with spouse in a 2SH, 2 steps to enter, has 2 supportive children. Pt described himself as independent in all areas [employer], drives, works.
PCP: Val Prather
Pharmacy: [facility]
D/C plan: home with anticipated no needs. Spouse to transport at discharge.
CM will follow with discharge plan updates as hospitalization progresses
--- NOTE | 2023-12-25 11:19 | PTCARENOTE ---
Updated assessment, vital signs ongoing and as documented. Surgical update bedside this morning. Following Edwin and NGT trends thru shift. Am labs as ordered. Update with critical care team in am rounds daycare worker and pharmacy follow up. Patient and
updated teaching plan of cares. Incentive spirometer teaching, cough deep breath exercises, pain management, and follow up unit protocols ongoing. Call adams, tv, teaching menu options reviewed. Continue hourly rounds and follow up ongoing plan
of cares.
[2023-12-25] MEDS: MAGNESIUM SULFATE 100 IV (11:36)
[2023-12-25] MEDS: LR 500 IV (11:37)
--- NOTE | 2023-12-25 13:18 | W.PN.GS2 ---
Today's Communication / Plan
-
Continue IV antibiotics. Continue NG tube to low intermittent wall suction.
Assessment / Plan
-
This is a 63-year-old male postoperative day 1 from a laparoscopic appendectomy and intra-abdominal washout for purulent and feculent perforated appendicitis. Remains in septic shock on pressors in the ICU. Overall clinically patient appears to be
improving.
Wean pressors as able
Out of bed to the chair as able
N.p.o., IV fluids, continue NG tube to low intermittent wall suction. Expect ileus
Continue antibiotics x 7 days
Await return of bowel function.
Continue CÉSAR to bulb suction.
General surgery will follow along with you.
Time Spent
Total Time Spent with Patient (in minutes): 20
Subjective Data
-
Date of Service: December 25, 2023
Interval Events:
No acute events overnight. Slept ok. Pain Controlled. Denies Nausea/Vomiting, -bowel function. On pressors but mentating well.
Objective Data
-
Intake and Output
12/24/23 12/25/23/04/12
06:59 06:59 06:59
Intake Total 4460.0 / 4605.0 1387.5 / 1387.5
Output Total 5335 / 5485 950 / 950
Balance -875.0 / -880.0 437.5 / 437.5
Intake:
IV fluids (Total) 3070.0 / 3215.0 787.5 / 787.5
IVF Bolus 500 / 500
Levophed 870.0 / 915.0 187.5 / 187.5
Lr 1,000 ml @ 100 mls/hr IV . 1700 / 1800 600 / 600
Q10H ANN Rx#:[id number]
IV piggybacks 1210 / 1210 600 / 600
Amount instilled into GI Tube ( 180 / 180
Total)
[place] Sump 180 / 180
Output:
Drain Output (Total) 110 / 110
Left Lower Abdomen Willie- 110 / 110
Em A
Gastrointestinal tube output ( 2450 / 2450
Total)
[place] Sump 1450 / 1450
Urine, Hu 2775 / 2925 950 / 950
Other:
Number of immeasurable emeses? 4
Vital Signs
Temp Pulse Resp BP Pulse Ox
98.4 F 74 20 119/54 96
12/25/23 12:50 12/25/23 12:50 12/25/23 12:50 12/25/23 12:50 12/25/23 12:50
Lab Results
12/25/23 04:04
12/25/23 04:04
Calcium 8.5 mg/dl (8.4-10.2) 12/25/23 04:04
Magnesium 1.7 mg/dl (1.6-2.3) 12/25/23 04:04
Total Bilirubin 0.9 mg/dl (0.2-1.3) 12/24/23 11:41
AST 38 U/L (17-59) 12/24/23 11:41
ALT 28 U/L (0-50) 12/24/23 11:41
Alkaline Phosphatase 56 U/L (38-126) 12/24/23 11:41
Total Protein 7.8 g/dl (6.3-8.2) 12/24/23 11:41
Albumin 4.6 g/dl (3.5-5.0) 12/24/23 11:41
Physical Exam
-
GENERAL/NEURO: Awake, Alert, no distress
CHEST: Unlabored breathing on RA
ABDOMEN: Soft, Non-Tender, Non-Distended, incisions clean dry intact, serous output in the drain with some purulent exudate in the tubing that was stripped,
--- NOTE | 2023-12-25 14:17 | W.PN.HOSP.TC ---
Today's Communication/Plan
-
wean pressors, continue IVF, IV Abx
replete lytes as per ICU team
follow ICU and GS recs
Assessment / Plan
Assessment / Plan
Assessment:
Severe sepsis with shock (tachycardia, leukocytosis, lactic acidosis, perforated appendicitis) POA
Perforated appendicitis (Contained perforation)
- CT: Findings suspicious for acute appendicitis in the right lower quadrant with findings also suspicious for accompanying small contained perforation. No findings to confirm free intraperitoneal air. Accompanying small bowel dilatation with
air-fluid levels most likely representing ileus, cannot exclude partial distal small bowel obstruction.
- s/p laparoscopic appendectomy, intra-abdominal washout 12/25/2023
- on Levophed; wean pressors as able; currently on 3L
- continue IV Zosyn, day 2
- keep NPO with NGT in place. Ileus will likely occur per GS
- anti-emetics
- GS following
- ICU following
Severe dehydration with acute life threatening ESTEFANÍA
- ESTEFANÍA improving
- hold nephrotoxins
- check bladder scans
- aggressive IVF
- repeat BMP daily
Hyponatremia
Essential HTN
- hold BP Meds
Nonischemic cardiomyopathy, EF 40%
Left bundle branch block
- cardiac catheterization 2017 normal
History of neurofibromatosis
25+ pack years to smoking, ongoing
Family history of lung cancer (mother 57)
DVT ppx: SC heparin + SCDs
Code: Full
Total Critical Care Time 41 minutes. I was immediately available to the patient and staff. I personally examined, reviewed labs, diagnostic images/reports, interpretations, treatment plans, discussed patient care with other providers and family or
caregivers (if patient is unable to make decisions), entered orders as appropriate and documented the medical record.
Anticipated Discharge: > 48 hours
Subjective/Interval History
-
Date of Service: December 25, 2023
s/p appendix surgery
remains on 3 mcg Levophed, drain in place as well as NGT
Objective Data
-
Labs:
Laboratory Results
12/25/23
04:04
WBC 9.5
Hgb 11.2 L
Hct 31.4 L
Plt Count 186
Sodium 130 L
Potassium 4.3
Chloride 98
Carbon Dioxide 26
BUN 56 H
Creatinine 2.9 H
Glucose 160 H
Calcium 8.5
Vital Signs:
Vital Signs
Temp Pulse Resp BP Pulse Ox
98.4 F 71 21 117/52 96
12/25/23 12:50 12/25/23 13:15 12/25/23 13:15 12/25/23 13:00 12/25/23 13:27
I&O
12/24/23 12/25/23 12/26/23
06:59 06:59 06:59
Intake Total 4460.0 / 4605.0 1552.5 / 1552.5
Output Total 5335 / 5485 1050 / 1050
Balance -875.0 / -880.0 502.5 / 502.5
Physical Exam
-
General: No Apparent Distress
HEENT: Normocephalic and Atraumatic
Respiratory: Negative Wheezes
Cardiac: Regular Rhythm
GI: Soft and Other (drain)
Musculoskeletal: No Edema
Neuro: AO x 3
Hematologic / Lymphatic: No Lymphadenopathy
Psych: Calm
Data Reviewed
-
Critical Care Time (in minutes): 41
Labs: Labs Reviewed by me
[2023-12-25] MEDS: ANESTHETIC LOZENGE 1 LOZENGE PO (14:32)
--- NOTE | 2023-12-25 17:13 | VATNOTE ---
Picc on hold . Levophed gtt dc'd. will reevaluate the needs.
[2023-12-25] MEDS: DILAUDID 0.5 MG IV (22:24)
[2023-12-26] VITALS (23 sets, daily range): BP systolic 105–132; BP diastolic 52–65; PULSE 71; O2SAT 95; BMI 25.6
[2023-12-26] MEDS: LR 1000 IV ×3 (01:44→21:26)
--- NOTE | 2023-12-26 04:30 | PTCARENOTE ---
Pressures maintained overnight since levo gtt was turned off at 1900. Surgical site appears C/D/I. CÉSAR drain putting out serosang drainage. VSS.
[2023-12-26] MEDS: ZOSYN 50 IV ×4 (05:17→23:56)
[2023-12-26 05:59] LABS: Hematocrit 31.1 % (39.0-52.0); Hemoglobin 10.8 g/dL (13.0-18.0); Mean Corp Hgb Conc. 34.7 g/dL (33.0-37.0); Mean Corpuscular Hgb 30.6 pg (27.0-31.0); Mean Corpuscular Volume 88.1 fL (80.0-94.0); Mean Platelet Volume 11.2 fL (7.4-10.4); Platelet Count 152 10^3/uL (130-400); Red Blood Cell Count 3.53 10^6/uL (4.70-6.10); Red Cell Dist. Width 13.3 % (11.5-14.5); White Blood Cell Count 7.2 10^3/uL (4.8-10.8)
--- NOTE | 2023-12-26 06:00 | PTCARENOTE ---
Measured 1200mLs of brownish red secretions from NG tube across shift.
[2023-12-26 06:25] LABS: Blood Urea Nitrogen 55 mg/dl (9-20); Calcium 8.6 mg/dl (8.4-10.2); Carbon Dioxide 35 mmol/L (22-30); Chloride 95 mmol/L (98-107); Estimated Creatinine Clearance 43 ml/min; Glucose 104 mg/dl (70-99); Potassium 3.8 mmol/L (3.5-5.1); Sodium 136 mmol/L (135-145); eGFR 38.91
--- NOTE | 2023-12-26 06:52 | W.PN.INTV ---
Today's Communication / Plan
Recommendations
Continue to monitor I's and O's, maintenance IV fluids
NG output noted. Follow hemoglobin
Remains on PPI therapy
Urine output and creatinine continue to improve
Continue Zosyn
Remains on subcutaneous heparin every 8 hours and mechanical prophylaxis
Possible transfer out of ICU if okay with surgery. If transferred, we will sign off. Please call with questions
Assessment
-
63-year-old male with history of hypertension, left bundle branch block, cardiomyopathy EF 40%, presents with 3 days of nausea/emesis, subjective fevers. Upon arrival, found to be hypotensive, with leukocytosis. Imaging confirmed acute
appendicitis possible contained perforation. Patient was given IV fluids, IV antibiotics admitted to ICU for further management 12/24/2023
Acute appendicitis
Contained perforation per imaging
S/p laparoscopic appendectomy, intra-abdominal washout 12/25/2023
Hypotension, septic shock
Leukocytosis
Hyponatremia
Acute renal insufficiency
Admission creatinine 6.5
Conditions present prior to admission
Hypertension
Nonischemic cardiomyopathy, EF 40%
Left bundle branch block
cardiac catheterization 2017 normal
History of neurofibromatosis
25+ pack years to smoking, ongoing
Family history of lung cancer (mother 57)
Plan/recommendations
At this time, patient improved objectively and subjectively, weaned off pressors
Significant NG output noted, -2200
Despite IV fluids, multiple IV fluid boluses, negative fluid status noted
Creatinine improving, urine output adequate, admission creatinine 6.5, now down to 1.9
EKG with left bundle branch block, chronic
Moving forward
Continue with IV fluid resuscitation, continue with maintenance fluids
Pressors have been weaned off
Follow I's and O's, maintain at least equivalent/positive fluid status as long as oxygenation adequate
NG tube remains in place, n.p.o.
1200 cc overnight noted, dark bilious
Hemoglobin noted, follow
Cardiomyopathy is noted
Had recent cardiology evaluation as outpatient October 2023
Left bundle branch block is stable, cardiac catheterization 2016 normal
Despite fluids, negative fluid status noted, oxygenation adequate
Repeat labs, follow creatinine
Hu catheter in place
Replete magnesium
Hemoglobin 10.9, follow
Continue broad-spectrum antibiotics
Incentive spirometry, cough encouraged
DVT prophylaxis: Sequential teds and subcutaneous heparin
GI prophylaxis: Not indicated
Reviewed with critical care nursing
Possible transfer out of ICU if surgery agreeable. If transferred, we will sign off. Please call with questions
Subjective Dataa
Subjective Data
Date of Service:
Date of Service: December 26, 2023
Subjective:
No major issues overnight. NG output remains elevated at 2200. Urine output good. Drain output 130 cc. Pain seems to be controlled. NG tube in place
Objective Data
Data Reviewed
Vital Signs / I&O / Oxygen:
Vital Signs
Temp Pulse Resp BP Pulse Ox
98.1 F 73 18 121/60 95
12/26/23 05:22 12/26/23 06:30 12/26/23 06:30 12/26/23 06:00 12/26/23 06:30
Intake and Output
12/24/23 12/25/23 12/26/23
06:59 06:59 06:59
Intake Total 4460.0 / 4605.0 3467.5 / 3467.5
Output Total 5335 / 5485 5255 / 5255
Balance -875.0 / -880.0 -1787.5 / -1787.5
SaO2 95
Nasal Cannula flow liters per 2
minute
Physical Exam
General: Comfortable and Other (Upper extremity A-line)
HEENT: Normocephalic and Anicteric
Cardiovascular: S1-S2, Regular Rhythm, Murmur (n) and Rub (n)
Respiratory: Wheeze (n), Crackles (n), Rhonchi (n), Non-Labored Respirations and Other (Mild splinting)
GI: Soft, Non Distended, Tender (Mild rebound) and Other (CÉSAR drain in place, dressing intact)
Neurology: Awake, Alert and No Motor Deficits
Skin: Cyanosis (n), Jaundice (n) and Rash (n)
Labs/Micro/Reports
Lab Data
12/26/23 05:49
12/26/23 05:49
Microbiology
12/24/23 19:10 Appendix Tissue Culture - Preliminary
12/24/23 19:10 Appendix Gram Stain - Final
12/24/23 14:43 Urine Urine Culture - Final
NO GROWTH
12/24/23 11:41 Blood/Venous Blood Culture - Preliminary
No Growth in 24 hours- Final report to follow
12/24/23 11:41 Blood/Venous Blood Culture - Preliminary
No Growth in 24 hours- Final report to follow
[2023-12-26] MEDS: HEPARIN 5000 UNITS SC ×3 (07:52→23:40)
[2023-12-26] MEDS: ANESTHETIC LOZENGE 1 LOZENGE PO ×2 (07:54→13:58)
[2023-12-26] MEDS: OFIRMEV 100 IV ×3 (07:54→21:25)
--- NOTE | 2023-12-26 08:37 | W.PN.GS2 ---
Today's Communication / Plan
-
Protonix
PT
DC ferreira
Cont NGT
Cont IV abx
Step down
Assessment / Plan
-
63M POD2 s/p laparoscopic appendectomy and intra-abdominal washout for purulent and feculent perforated appendicitis.
Improving
High NGT outputs with dark bloody/bilious fluid - ileus expected, likely some tube trauma causing the bleeding
Excellent UOP, Cr continues to improve
Excellent pain control
Hb stable, no leukocytosis
Plan:
OK for step down to tele
Add protonix IV
DC ferreira
PT eval and treat
Out of bed to the chair as able
N.p.o., IV fluids, continue NG tube to low intermittent wall suction.
Continue antibiotics today day 2/7 day course
Await return of bowel function.
Continue CÉSAR to bulb suction.
General surgery will follow along with you.
Subjective Data
-
Date of Service: December 26, 2023
AFVSS, weaned off pressors in past 24 hrs, pain controlled, denies flatus/BM, hungry, has not ambulated
Objective Data
-
Intake and Output
12/25/23 12/26/23 12/27/23
06:59 06:59 06:59
Intake Total 4460.0 / 4605.0 3467.5 / 3567.5 200 / 200
Output Total 5335 / 5485 5775 / 5975 400 / 400
Balance -875.0 / -880.0 -2307.5 / -2407.5 -200 / -200
Intake:
IV fluids (Total) 3070.0 / 3215.0 2617.5 / 2717.5 200 / 200
IVF Bolus 500 / 500
Levophed 870.0 / 915.0 217.5 / 217.5
Lr 1,000 ml @ 100 mls/hr IV . 1700 / 1800 2400 / 2500 200 / 200
Q10H [facility] Rx#:[id number]
IV piggybacks 1210 / 1210 750 / 750
Amount instilled into GI Tube ( 180 / 180 100 / 100
Total)
[place] Sump 180 / 180 100 / 100
Output:
Drain Output (Total) 110 / 110 152 / 152
Left Lower Abdomen Willie- 110 / 110 152 / 152
Em A
Gastrointestinal tube output ( 2450 / 2450 2250 / 2250
Total)
[place] Sump 1450 / 1450 2250 / 2250
Urine, Ferreira 2775 / 2925 3373 / 3573 400 / 400
Other:
Number of immeasurable emeses? 4
Vital Signs
Temp Pulse Resp BP Pulse Ox
98.4 F 74 20 120/63 88
12/26/23 07:25 12/26/23 08:01 12/26/23 08:01 12/26/23 08:01 12/26/23 08:01
Lab Results
12/26/23 05:49
12/26/23 05:49
Calcium 8.6 mg/dl (8.4-10.2) 12/26/23 05:49
Magnesium 1.7 mg/dl (1.6-2.3) 12/25/23 04:04
Total Bilirubin 0.9 mg/dl (0.2-1.3) 12/24/23 11:41
AST 38 U/L (17-59) 12/24/23 11:41
ALT 28 U/L (0-50) 12/24/23 11:41
Alkaline Phosphatase 56 U/L (38-126) 12/24/23 11:41
Total Protein 7.8 g/dl (6.3-8.2) 12/24/23 11:41
Albumin 4.6 g/dl (3.5-5.0) 12/24/23 11:41
Physical Exam
-
Gen: NAD
Abd: soft, approp ttp, incisions cdi, drain ss (slightly cloudy)
[2023-12-26] MEDS: PROTONIX IV 40 MG IV (11:11)
[2023-12-26] MEDS: NSS (PRESERVATIVE FREE) 10 ML IV (11:11)
--- NOTE | 2023-12-26 11:51 | PTCARENOTE ---
Pt in good spirits today. Complains of minor pain in his ABD and back of his throat. IV tylenol and a throat lozenge given. Seen by surgery, recommended getting OOB and pulling ferreira catheter. Pt still having a large amount of dark brown output via
[place]. He states that he is hungry and after having some gas pains he states that he is now passing flatus. Catheter removed at 0940 and by noon pt had already urinated by noon. IV sites leaking, swapped out for a new 22g in the L FA. Call
adams within reach. at bedside, all questions answered. [facility] tele.
--- NOTE | 2023-12-26 13:57 | W.PN.HOSP.TC ---
Today's Communication/Plan
-
continue NPO, IVF, IV Abx and NGT pending ROBF
transfer 2 S
Assessment / Plan
Assessment / Plan
Assessment:
Severe sepsis with shock (tachycardia, leukocytosis, lactic acidosis, perforated appendicitis) POA
Perforated appendicitis (Contained perforation)
- CT: Findings suspicious for acute appendicitis in the right lower quadrant with findings also suspicious for accompanying small contained perforation. No findings to confirm free intraperitoneal air. Accompanying small bowel dilatation with
air-fluid levels most likely representing ileus, cannot exclude partial distal small bowel obstruction.
- s/p laparoscopic appendectomy, intra-abdominal washout 12/25/2023
- weaned off pressors
- continue IV Zosyn, day 3
- keep NPO with NGT in place. Ileus will likely occur per GS. Await ROBF
- anti-emetics
- GS following
- ICU following
Severe dehydration with acute life threatening ESTEFANÍA
- ESTEFANÍA improving
- hold nephrotoxins
- check bladder scans
- aggressive IVF
- repeat BMP daily
Hyponatremia
Essential HTN
- hold BP Meds
Nonischemic cardiomyopathy, EF 40%
Left bundle branch block
- cardiac catheterization 2017 normal
History of neurofibromatosis
25+ pack years to smoking, ongoing
Family history of lung cancer (mother 57)
DVT ppx: SC heparin + SCDs
Code: Full
Total Critical Care Time 41 minutes. I was immediately available to the patient and staff. I personally examined, reviewed labs, diagnostic images/reports, interpretations, treatment plans, discussed patient care with other providers and family or
caregivers (if patient is unable to make decisions), entered orders as appropriate and documented the medical record.
Dispo: 2S/Tele
Anticipated Discharge: > 48 hours
Subjective/Interval History
-
Date of Service: December 26, 2023
nasal congestion this morning, no cough, sob, chest pain or fever
Objective Data
-
Labs:
Laboratory Results
12/26/23
05:49
WBC 7.2
Hgb 10.8 L
Hct 31.1 L
Plt Count 152
Sodium 136
Potassium 3.8
Chloride 95 L
Carbon Dioxide 35 H
BUN 55 H
Creatinine 1.9 H
Glucose 104 H
Calcium 8.6
Vital Signs:
Vital Signs
Temp Pulse Resp BP Pulse Ox
98.3 F 79 15 112/65 94
12/26/23 11:10 12/26/23 11:45 12/26/23 11:45 12/26/23 11:03 12/26/23 11:45
I&O
12/25/23 12/26/23 12/27/23
06:59 06:59 06:59
Intake Total 4460.0 / 4605.0 3467.5 / 3567.5 730 / 730
Output Total 5335 / 5485 5775 / 5975 1525 / 1525
Balance -875.0 / -880.0 -2307.5 / -2407.5 -795 / -795
Physical Exam
-
General: No Apparent Distress
HEENT: Normocephalic, Atraumatic and Other (+NGT)
Respiratory: Clear to Auscultation; Negative Wheezes or Rales
Cardiac: Regular Rhythm and S1/S2
GI: Soft (drain in place)
Genito-urinary: No Costovertebral Tender
Neuro: AO x 3
Hematologic / Lymphatic: No Lymphadenopathy
Psych: Calm
Data Reviewed
-
Critical Care Time (in minutes): 41
Labs: Labs Reviewed by me
--- NOTE | 2023-12-26 14:33 | CM ---
CM following re: discharge planning.
Reviewed pt's chart, met with pt and pt's spouse at bedside.
Pt is POD#2 s/p laparoscopic appendectomy and intra-abdominal washout for purulent and feculent perforated appendicitis. per Surgery pt is improving, hemodynamically stable.
Pt and OT evaluation noted - pt has no skilled PT/OT needs.
D/C plan: home with anticipated no needs. Spouse to transport at discharge.
CM will follow with discharge plan updates as hospitalization progresses
--- NOTE | 2023-12-26 21:02 | PTCARENOTE ---
Pt AAox3, VSS, SB/NSR on monitor, C/o minor sore throat, PRN lozenger as needed. NGT in Left nare draining to LIS draining green/yellow bile. 2 puncture sites on abdomen closed with surgical glue. Positive bowel sounds, Passing flatus. LR infusing
at 100ml/hr. urine output adequate. Pt to be transferred to .
[2023-12-27 03:24] VITALS: BP 108/54
[2023-12-27] MEDS: OFIRMEV 100 IV (03:25)
[2023-12-27] MEDS: ZOSYN 50 IV ×4 (05:36→23:35)
[2023-12-27 06:55] LABS: Hematocrit 31.2 % (39.0-52.0); Hemoglobin 10.7 g/dL (13.0-18.0); Mean Corp Hgb Conc. 34.3 g/dL (33.0-37.0); Mean Corpuscular Hgb 30.1 pg (27.0-31.0); Mean Corpuscular Volume 87.9 fL (80.0-94.0); Mean Platelet Volume 11.6 fL (7.4-10.4); Platelet Count 155 10^3/uL (130-400); Red Blood Cell Count 3.55 10^6/uL (4.70-6.10); Red Cell Dist. Width 13.6 % (11.5-14.5); White Blood Cell Count 8.1 10^3/uL (4.8-10.8)
[2023-12-27 07:14] LABS: Blood Urea Nitrogen 52 mg/dl (9-20); Calcium 8.7 mg/dl (8.4-10.2); Carbon Dioxide 30 mmol/L (22-30); Chloride 98 mmol/L (98-107); Estimated Creatinine Clearance 55 ml/min; Glucose 83 mg/dl (70-99); Potassium 3.6 mmol/L (3.5-5.1); Sodium 136 mmol/L (135-145); eGFR 51.67
[2023-12-27 07:15] VITALS: BP 117/60
--- NOTE | 2023-12-27 07:25 | W.PN.GS2 ---
Today's Communication / Plan
-
NG tube clamp trial. Possible clears today.
Assessment / Plan
-
63M POD3 s/p laparoscopic appendectomy and intra-abdominal washout for purulent and feculent perforated appendicitis. Expected ileus however now has some return of bowel function.
Plan:
NG tube clamp trial if less than 250 cc, okay to DC and start clears
PT eval and treat
Out of bed to the chair as able
Continue antibiotics today day 3/7 day course
Continue CÉSAR to bulb suction, output is serous will likely be able to remove prior to discharge.
General surgery will continue to follow
Time Spent
Total Time Spent with Patient (in minutes): 10
Subjective Data
-
Date of Service: December 27, 2023
Interval Events:
No acute events overnight. Patient transferred to the floor. Slept well. Pain Controlled. Denies Nausea/Vomiting, +bowel function. NG still in place.
Objective Data
-
Intake and Output
12/26/23 12/27/23 12/28/23
06:59 06:59 06:59
Intake Total 3467.5 / 3567.5 2590 / 2590
Output Total 5775 / 5975 3000 / 3000
Balance -2307.5 / -2407.5 -410 / -410
Intake:
IV fluids (Total) 2617.5 / 2717.5 2100 / 2100
Levophed 217.5 / 217.5
Lr 1,000 ml @ 100 mls/hr IV . 2400 / 2500 1500 / 1500
Q10H [facility] Rx#:[id number]
IV piggybacks 750 / 750 350 / 350
Amount instilled into GI Tube ( 100 / 100 140 / 140
Total)
[place] Sump 100 / 100 140 / 140
Output:
Drain Output (Total) 152 / 152
Left Lower Abdomen Willie- 152 / 152
Em A
Gastrointestinal tube output ( 2250 / 2250 1300 / 1300
Total)
[place] Sump 2250 / 2250 1300 / 1300
Urine, Hu 3373 / 3573 400 / 400
Urine, Voided 1300 / 1300
Vital Signs
Temp Pulse Resp BP Pulse Ox
98.3 F 69 18 117/60 91
12/27/23 07:15 12/27/23 07:15 12/27/23 07:15 12/27/23 07:15 12/27/23 07:15
Lab Results
12/27/23 05:33
Calcium 8.7 mg/dl (8.4-10.2) 12/27/23 05:33
Magnesium 1.7 mg/dl (1.6-2.3) 12/25/23 04:04
Total Bilirubin 0.9 mg/dl (0.2-1.3) 12/24/23 11:41
AST 38 U/L (17-59) 12/24/23 11:41
ALT 28 U/L (0-50) 12/24/23 11:41
Alkaline Phosphatase 56 U/L (38-126) 12/24/23 11:41
Total Protein 7.8 g/dl (6.3-8.2) 12/24/23 11:41
Albumin 4.6 g/dl (3.5-5.0) 12/24/23 11:41
Physical Exam
-
GENERAL/NEURO: Awake, Alert, no distress
CHEST: Unlabored breathing on RA
ABDOMEN: Soft, Non-Tender, still very mildly distended, CÉSAR serous
[2023-12-27] MEDS: LR 1000 IV ×2 (08:29→08:41)
[2023-12-27] MEDS: NSS (PRESERVATIVE FREE) 10 ML IV (08:29)
[2023-12-27] MEDS: HEPARIN 5000 UNITS SC ×3 (08:29→23:36)
[2023-12-27] MEDS: PROTONIX IV 40 MG IV (08:29)
--- NOTE | 2023-12-27 09:24 | W.PN.HOSP.TC ---
Today's Communication/Plan
-
NGT clamp trial
clears if passes
IVF x 1 more day to help resolve ESTEFANÍA
continue iv Abx
PT/OT
Assessment / Plan
Assessment / Plan
Assessment:
Severe sepsis with shock (tachycardia, leukocytosis, lactic acidosis, perforated appendicitis) POA
Perforated appendicitis (Contained perforation)
- CT: Findings suspicious for acute appendicitis in the right lower quadrant with findings also suspicious for accompanying small contained perforation. No findings to confirm free intraperitoneal air. Accompanying small bowel dilatation with
air-fluid levels most likely representing ileus, cannot exclude partial distal small bowel obstruction.
- s/p laparoscopic appendectomy, intra-abdominal washout 12/25/2023
- CÉSAR drain in place, will continue
- weaned off pressors (shock resolved)
- continue IV Zosyn, day 10/24
- for clamp trial with NGT; if passes, ok'd by GS for clears
- anti-emetics, pain control
- PT/OT
- GS following
Severe dehydration with acute life threatening ESTEFANÍA
- ESTEFANÍA improving (Cr 1.5 now)
- hold nephrotoxins
- check bladder scans
- aggressive IVF x 1 further day
- repeat BMP daily
Hyponatremia
Essential HTN
- hold BP Meds
Nonischemic cardiomyopathy, EF 40%
Left bundle branch block
- cardiac catheterization 2017 normal
History of neurofibromatosis
25+ pack years to smoking, ongoing
Family history of lung cancer (mother 57)
DVT ppx: SC heparin + SCDs
Code: Full
Anticipated Discharge: > 48 hours
Subjective/Interval History
-
Date of Service: December 27, 2023
for NGT clamp trial today
pain improving
Objective Data
-
Labs:
Laboratory Results
12/27/23
05:33
WBC 8.1
Hgb 10.7 L
Hct 31.2 L
Plt Count 155
Sodium 136
Potassium 3.6
Chloride 98
Carbon Dioxide 30
BUN 52 H
Creatinine 1.5 H
Glucose 83
Calcium 8.7
Vital Signs:
Vital Signs
Temp Pulse Resp BP Pulse Ox
98.3 F 69 18 117/60 91
12/27/23 07:15 12/27/23 07:15 12/27/23 07:15 12/27/23 07:15 12/27/23 07:15
I&O
12/26/23 12/27/23 12/28/23
06:59 06:59 06:59
Intake Total 3467.5 / 3567.5 2590 / 2590
Output Total 5775 / 5975 3000 / 3000
Balance -2307.5 / -2407.5 -410 / -410
Physical Exam
-
General: No Apparent Distress
HEENT: Normocephalic, Atraumatic and Other (NGT)
Respiratory: Negative Wheezes or Rales
Cardiac: Regular Rhythm and S1/S2
GI: Soft
Genito-urinary: No Costovertebral Tender
Musculoskeletal: No Edema
Neuro: AO x 3
Hematologic / Lymphatic: No Lymphadenopathy
Psych: Calm
Data Reviewed
-
Total Time Spent with Patient (in minutes): 42
Labs: Labs Reviewed by me
--- NOTE | 2023-12-27 10:18 | PTCARENOTE ---
Addendum entered by Sandrita Olivas RN 12/27/23 11:16:
[place] sump removed per MD order and clear liquid diet started. pt tolerated removal. output charted
Original Note:
per Surgery NGT clamped for two hours this AM. unclamped at 0950 by this nurse back to int. suction. will report output to MD within half an hour. pt walked hallway with and IVF still going at 70ml/hr at this time through the L wrist. pt
tolerating ice chips and having periodic gas. abdomen nontender per patient.
[2023-12-27 11:16] VITALS: BP 133/68
[2023-12-27 12:55] VITALS: BMI 25.6
[2023-12-27 15:10] VITALS: BP 143/65
--- NOTE | 2023-12-27 16:29 | CM ---
NGT clamp trial, possibly start clear liquids, IV/AB. Therapy eval with rec for no needs. Anticipate home with No needs.
[2023-12-27 19:41] VITALS: BP 102/56
[2023-12-27 23:26] VITALS: BP 112/65
[2023-12-27] MEDS: TYLENOL 650 MG PO (23:36)
[2023-12-28] VITALS (7 sets, daily range): BP systolic 109–134; BP diastolic 53–74; PULSE 91; O2SAT 96
[2023-12-28 05:36] LABS: Hematocrit 34.6 % (39.0-52.0); Hemoglobin 11.7 g/dL (13.0-18.0); Mean Corp Hgb Conc. 33.8 g/dL (33.0-37.0); Mean Corpuscular Volume 88.7 fL (80.0-94.0); Mean Platelet Volume 11.5 fL (7.4-10.4); Platelet Count 159 10^3/uL (130-400); Red Cell Dist. Width 13.7 % (11.5-14.5); White Blood Cell Count 9.8 10^3/uL (4.8-10.8)
[2023-12-28 06:05] LABS: Blood Urea Nitrogen 41 mg/dl (9-20); Calcium 8.7 mg/dl (8.4-10.2); Carbon Dioxide 25 mmol/L (22-30); Chloride 101 mmol/L (98-107); Estimated Creatinine Clearance 63 ml/min; Glucose 104 mg/dl (70-99); Potassium 3.8 mmol/L (3.5-5.1); Sodium 134 mmol/L (135-145); eGFR > 60.00
[2023-12-28] MEDS: ZOSYN 50 IV ×4 (06:15→23:16)
[2023-12-28] MEDS: PROTONIX IV 40 MG IV (07:54)
[2023-12-28] MEDS: NSS (PRESERVATIVE FREE) 10 ML IV (07:54)
[2023-12-28] MEDS: HEPARIN 5000 UNITS SC ×2 (07:55→20:40)
--- NOTE | 2023-12-28 08:04 | W.PN.GS2 ---
Addendum entered and electronically signed by Kenney Cano MD 12/28/23 13:22:
I saw and examined the patient.
The Dairy [employer] Manager's note was reviewed and I agree with the note.
Comment: Improving, ileus resolving with lots of flatus. Exam benign, drain serous. He is not interested in the offerings on the full liquids, I will adv to LRD. We discussed foods to avoid, going slow, and stopping if he gets pain/nausea. IV abx
to cont.
Original Note:
Today's Communication / Plan
-
Advance diet
Assessment / Plan
-
63M POD #4 s/p laparoscopic appendectomy and intra-abdominal washout for purulent and feculent perforated appendicitis.
AFVSS
Ileus resolving
Labs stable
Plan:
Advance to FLD
OOB/Ambulate. PT following
Continue antibiotics today day 4/7 day course
Multimodal analgesics
Continue CÉSAR to bulb suction, output is serous will likely be able to remove prior to discharge.
General surgery will continue to follow
Subjective Data
-
Date of Service: December 28, 2023
Patient seen and examined at bedside with spouse present. Denies n/v. Tolerating clears. Reports he is very hungry. Passing a lot of flatus overnight, initially, with gas pains but this has eased up. Pain well managed. Some heartburn overnight.
Objective Data
-
Intake and Output
12/27/23 12/28/23 12/29/23
06:59 06:59 06:59
Intake Total 2590 / 2590 2600 / 2600
Output Total 3000 / 3000 1770 / 1770
Balance -410 / -410 830 / 830
Intake:
Oral fluids 1230 / 1230
IV fluids (Total) 2100 / 2100 1190 / 1190
Lr 1,000 ml @ 100 mls/hr IV . 1500 / 1500
Q10H [facility] Rx#:[id number]
IV piggybacks 350 / 350 150 / 150
Amount instilled into GI Tube ( 140 / 140 30 / 30
Total)
[place] Sump 140 / 140 30 / 30
Output:
Drain Output (Total) 145 / 145
Left Lower Abdomen Willie- 145 / 145
Em A
Gastrointestinal tube output ( 1300 / 1300 50 / 50
Total)
[place] Sump 1300 / 1300 50 / 50
Urine, Hu 400 / 400
Urine, Voided 1300 / 1300 1575 / 1575
Other:
Number of approximated MODERATE 1
amounts of urine
Number of approximated LARGE 3
amounts of urine
Vital Signs
Temp Pulse Resp BP Pulse Ox
98.5 F 74 16 121/59 95
12/28/23 03:42 12/28/23 03:42 12/28/23 03:42 12/28/23 03:42 12/28/23 03:42
Lab Results
12/28/23 04:54
12/28/23 04:54
Calcium 8.7 mg/dl (8.4-10.2) 12/28/23 04:54
Magnesium 1.7 mg/dl (1.6-2.3) 12/25/23 04:04
Total Bilirubin 0.9 mg/dl (0.2-1.3) 12/24/23 11:41
AST 38 U/L (17-59) 12/24/23 11:41
ALT 28 U/L (0-50) 12/24/23 11:41
Alkaline Phosphatase 56 U/L (38-126) 12/24/23 11:41
Total Protein 7.8 g/dl (6.3-8.2) 12/24/23 11:41
Albumin 4.6 g/dl (3.5-5.0) 12/24/23 11:41
Physical Exam
-
GENERAL/NEURO: Awake, Alert, no distress
CHEST: Unlabored breathing on RA
ABDOMEN: Soft, Non-Tender, ND, CÉSAR serous (dressing changed)
--- NOTE | 2023-12-28 09:07 | W.PN.HOSP.TC ---
Today's Communication/Plan
-
resume Coreg
add Mucinex
PPI to PO route
repeat PT eval
Assessment / Plan
Assessment / Plan
Assessment:
Severe sepsis with shock (tachycardia, leukocytosis, lactic acidosis, perforated appendicitis) POA
Perforated appendicitis (Contained perforation)
- CT: Findings suspicious for acute appendicitis in the right lower quadrant with findings also suspicious for accompanying small contained perforation. No findings to confirm free intraperitoneal air. Accompanying small bowel dilatation with
air-fluid levels most likely representing ileus, cannot exclude partial distal small bowel obstruction.
- s/p laparoscopic appendectomy, intra-abdominal washout 12/25/2023
- CÉSAR drain in place, management per GS
- weaned off pressors (shock resolved)
- continue IV Zosyn, day 11/24
- s/p NGT
- on Full liquids
- anti-emetics, pain control
- PT/OT - cleared for home but patient requesting re-eval
- GS following
Severe dehydration with acute life threatening ESTEFANÍA
- ESTEFANÍA improving (Cr 1.3 now) after IVF course
- hold nephrotoxins
- check bladder scans
- repeat BMP daily
Hyponatremia
Essential HTN
- resume Coreg
- hold other BP Meds (KATINA, Aldactone)
Nonischemic cardiomyopathy, EF 40%
Left bundle branch block
- resume Coreg
- cardiac catheterization 2017 normal
History of neurofibromatosis
25+ pack years to smoking, ongoing
Family history of lung cancer (mother 57)
DVT ppx: SC heparin + SCDs
Code: Full
Anticipated Discharge: 24 - 48 hours
Subjective/Interval History
-
Date of Service: December 28, 2023
has some gas pains but is passing gas, no other complaints
tolerating clears
Objective Data
-
Labs:
Laboratory Results
05/10/24
04:54
WBC 9.8
Hgb 11.7 L
Hct 34.6 L
Plt Count 159
Sodium 134 L
Potassium 3.8
Chloride 101
Carbon Dioxide 25
BUN 41 H
Creatinine 1.3
Glucose 104 H
Calcium 8.7
Vital Signs:
Vital Signs
Temp Pulse Resp BP Pulse Ox
98.1 F 73 18 134/66 95
12/28/23 07:10 12/28/23 07:10 12/28/23 07:10 12/28/23 07:10 12/28/23 07:10
I&O
12/27/23 12/28/23 12/29/23
06:59 06:59 06:59
Intake Total 2590 / 2590 2600 / 2600
Output Total 3000 / 3000 1770 / 1770
Balance -410 / -410 830 / 830
Physical Exam
-
General: No Apparent Distress
HEENT: Normocephalic and Atraumatic
Respiratory: Negative Wheezes
Cardiac: Regular Rhythm and S1/S2
GI: Soft
Genito-urinary: No Costovertebral Tender
Musculoskeletal: No Edema
Neuro: AO x 3
Hematologic / Lymphatic: No Lymphadenopathy
Psych: Calm
Data Reviewed
-
Total Time Spent with Patient (in minutes): 42
Labs: Labs Reviewed by me
[2023-12-28] MEDS: MUCINEX 1200 MG PO ×2 (10:37→20:40)
[2023-12-28] MEDS: COREG 12.5 MG PO ×2 (10:38→20:40)
--- NOTE | 2023-12-28 16:22 | CM ---
Discharge Plan of Care: Anticipate drain will be removed. If so, Home with no needs. If drain remains, patient may need HH VN.
[2023-12-28] MEDS: FLUSH (NSS) 2 FLUSH IV (23:18)
[2023-12-29] MEDS: ZOSYN 50 IV ×2 (05:57→12:27)
[2023-12-29] MEDS: FLUSH (NSS) 2 FLUSH IV (06:00)
[2023-12-29 07:20] VITALS: BP 121/60
[2023-12-29] MEDS: PROTONIX 40 MG PO (08:09)
[2023-12-29] MEDS: COREG 12.5 MG PO (08:09)
[2023-12-29] MEDS: MUCINEX 1200 MG PO (08:09)
[2023-12-29] MEDS: HEPARIN 5000 UNITS SC (08:10)
[2023-12-29 08:24] LABS: Hematocrit 34.6 % (39.0-52.0); Hemoglobin 11.7 g/dL (13.0-18.0); Mean Corp Hgb Conc. 33.8 g/dL (33.0-37.0); Mean Corpuscular Hgb 30.5 pg (27.0-31.0); Mean Corpuscular Volume 90.1 fL (80.0-94.0); Mean Platelet Volume 12.3 fL (7.4-10.4); Platelet Count 186 10^3/uL (130-400); Red Blood Cell Count 3.84 10^6/uL (4.70-6.10); Red Cell Dist. Width 13.8 % (11.5-14.5); White Blood Cell Count 10.6 10^3/uL (4.8-10.8)
[2023-12-29 08:42] LABS: Blood Urea Nitrogen 40 mg/dl (9-20); Calcium 8.5 mg/dl (8.4-10.2); Carbon Dioxide 24 mmol/L (22-30); Chloride 101 mmol/L (98-107); Estimated Creatinine Clearance 68 ml/min; Glucose 96 mg/dl (70-99); Potassium 4.2 mmol/L (3.5-5.1); Sodium 135 mmol/L (135-145); eGFR > 60.00
--- NOTE | 2023-12-29 09:40 | PTCARENOTE ---
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 pt walking halls with and reported a BM this AM to this nurse. proper documentation on worklist. pt surgical sites intact with adhesive and pt states no abdominal pain at
this time.
--- NOTE | 2023-12-29 10:34 | W.PN.GS2 ---
Today's Communication / Plan
-
Continue diet
dispo planning
drain removed
Assessment / Plan
-
63M POD #5 s/p laparoscopic appendectomy and intra-abdominal washout for purulent and feculent perforated appendicitis.
AFVSS
+flatus/BM, ileus resolving
Labs stable, no leukocytosis
Plan:
Continue diet
OOB/Ambulate. PT following
Continue antibiotics today day 5/7 day course. Ok transition to PO Augmentin upon d/c
Multimodal analgesics
CÉSAR removed
Ok for discharge from surgical standpoint, d/c instructions updated. final dispo as per medical team
Subjective Data
-
Date of Service: December 29, 2023
Patient seen and examined at bedside with Dr. Greco. Denies n/v. Tolerating diet, still eating small amounts. Passed a BM today. Passing flatus. Pain improving.
Objective Data
-
Intake and Output
12/28/23 12/29/23 12/30/23
06:59 06:59 06:59
Intake Total 2600 / 2600 2150 / 2150
Output Total 1770 / 1770 700 / 700
Balance 830 / 830 1450 / 1450
Intake:
Oral fluids 1230 / 1230 2100 / 2100
IV fluids (Total) 1190 / 1190
IV piggybacks 150 / 150 50 / 50
Amount instilled into GI Tube ( 30 / 30
Total)
[place] Sump 30 / 30
Output:
Drain Output (Total) 145 / 145 100 / 100
Left Lower Abdomen Willie- 145 / 145 100 / 100
Em A
Gastrointestinal tube output ( 50 / 50
Total)
[place] Sump 50 / 50
Urine, Voided 1575 / 1575 600 / 600
Other:
Number of approximated MODERATE 1 1
amounts of urine
Number of approximated LARGE 3
amounts of urine
Vital Signs
Temp Pulse Resp BP Pulse Ox
98.8 F 77 14 121/60 98
12/29/23 07:20 12/29/23 07:20 12/29/23 07:20 12/29/23 08:09 12/29/23 10:10
Lab Results
12/29/23 06:04
12/29/23 06:04
Calcium 8.5 mg/dl (8.4-10.2) 12/29/23 06:04
Magnesium 1.7 mg/dl (1.6-2.3) 12/25/23 04:04
Total Bilirubin 0.9 mg/dl (0.2-1.3) 12/24/23 11:41
AST 38 U/L (17-59) 12/24/23 11:41
ALT 28 U/L (0-50) 12/24/23 11:41
Alkaline Phosphatase 56 U/L (38-126) 12/24/23 11:41
Total Protein 7.8 g/dl (6.3-8.2) 12/24/23 11:41
Albumin 4.6 g/dl (3.5-5.0) 12/24/23 11:41
Physical Exam
-
GENERAL/NEURO: Awake, Alert, no distress
CHEST: Unlabored breathing on RA
ABDOMEN: Soft, expected incisional tenderness, ND, CÉSAR serous (removed)
--- NOTE | 2023-12-29 13:00 | W.PN.HOSP.TC ---
Today's Communication/Plan
-
dc home
Assessment / Plan
Assessment / Plan
Assessment:
Severe sepsis with shock (tachycardia, leukocytosis, lactic acidosis, perforated appendicitis) POA
Perforated appendicitis (Contained perforation)
- CT: Findings suspicious for acute appendicitis in the right lower quadrant with findings also suspicious for accompanying small contained perforation. No findings to confirm free intraperitoneal air. Accompanying small bowel dilatation with
air-fluid levels most likely representing ileus, cannot exclude partial distal small bowel obstruction.
- s/p laparoscopic appendectomy, intra-abdominal washout 12/25/2023
- CÉSAR drain removed
- weaned off pressors (shock resolved)
- continue Abx day 12/24 - Augmentin at dc
- s/p NGT
- tolerating LRD
- anti-emetics, pain control
- PT/OT - cleared for home
- GS OP f/u
Severe dehydration with acute life threatening ESTEFANÍA
- ESTEFANÍA improving (Cr 1.3 now) after IVF course
Hyponatremia
Essential HTN
- resume Coreg
- resume KATINA
- hold Aldactone and repeat BP BID log it x 2 weeks and if stable, resume Aldactone
Nonischemic cardiomyopathy, EF 40%
Left bundle branch block
- resume Coreg
- cardiac catheterization 2017 normal
History of neurofibromatosis
25+ pack years to smoking, ongoing
Family history of lung cancer (mother 57)
DVT ppx: SC heparin + SCDs
Code: Full
More than 30 minutes spent in discharge including
Final examination of the patient
Summarizing hospital stay
Instructions for continuing care to all relevant caregivers
Preparation of discharge records, prescriptions, and referral forms
Total time spent (in minutes): 41
Anticipated Discharge: Today
Subjective/Interval History
-
Date of Service: December 29, 2023
denies any new complaints at present
Objective Data
-
Labs:
Laboratory Results
12/29/23
06:04
WBC 10.6
Hgb 11.7 L
Hct 34.6 L
Plt Count 186
Sodium 135
Potassium 4.2
Chloride 101
Carbon Dioxide 24
BUN 40 H
Creatinine 1.2
Glucose 96
Calcium 8.5
Vital Signs:
Vital Signs
Temp Pulse Resp BP Pulse Ox
98.8 F 77 14 121/60 98
12/29/23 07:20 12/29/23 07:20 12/29/23 07:20 12/29/23 08:09 12/29/23 10:10
I&O
12/28/23 12/29/23 12/30/23
06:59 06:59 06:59
Intake Total 2600 / 2600 2150 / 2150
Output Total 1770 / 1770 700 / 700
Balance 830 / 830 1450 / 1450
Physical Exam
-
General: No Apparent Distress
HEENT: Normocephalic and Atraumatic
Respiratory: Negative Wheezes or Rales
Cardiac: Regular Rhythm and S1/S2
GI: Soft
Genito-urinary: No Costovertebral Tender
Neuro: AO x 3
Hematologic / Lymphatic: No Lymphadenopathy
Psych: Calm
Data Reviewed
-
Total Time Spent with Patient (in minutes): 41
Labs: Labs Reviewed by me
--- NOTE | 2023-12-29 13:28 | W.DS.TRANS ---
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
-
Discharge Instructions:
Discharge Diagnosis/Procedures septic shock from perforated appendicitis s/p
surgery 5/6, severe renal failure resolved
Diet Low Residue
Activity No strenuous activity
Bathing Restrictions OK to Shower
Instructions:
Stand-Alone Forms:
Changes to Home Medications: No
Discharge Medications:
DC Medications w/original date entered in [employer]
carvedilol 12.5 mg tablet 12.5 mg PO BID Heart Disease/Condition 12/20/22
lisinopril 10 mg tablet 10 mg PO BID Blood Pressure 12/20/22
spironolactone 25 mg tablet 12.5 mg PO DAILY Heart Disease/Condition 12/20/22
aspirin 81 mg tablet,delayed release 81 mg PO DAILY Blood Clot Prevention/Tx 12/24/23
ntscgjzj-gdyuerys-pewh 8 mg-folic ac 400 mcg-vit K 10 mcg chew tablet (Centrum Chewables) 1 tab PO DAILY Supplement 12/24/23
amoxicillin 875 mg-potassium clavulanate 125 mg tablet 1 tab PO BID #6 tabs 12/29/23
pantoprazole 40 mg tablet,delayed release 40 mg PO DAILY #30 tabs 12/29/23
Home Medication Changes
spironolactone on hold for 2 weeks
Pending Results: No
Total time spent discharging patient (in min): 42
[2023-12-29 14:32] VITALS: BP 114/61
--- NOTE | 2023-12-29 14:38 | CM ---
Reviewed the chart notes. Patient is being discharged to home with no needs being identified at this time. Patient's spouse to provide transportation.
Plan: Discharge to home with no needs.
--- NOTE | 2024-01-04 11:29 | OR.RPT ---
Operative Report
Operative Report
Patient Name: Harmeet Araujo
: 1960
Date of Operation: 12/24/2023
Preoperative Diagnosis: Acute Appendicitis
Postoperative Diagnosis: Same
Procedure(s):
Laparoscopic Appendectomy
Intra-abdominal washout
Surgeon(s):
Dr. Hannah
Pie Crimping Machine Operator(s):
Dr. Stevens
Anesthesia: General
Estimated Blood Loss: 11 cc
Urine Output: None
Drains/Lines/Implants: 19 [place] round Allen drain
Specimens:
1. Appendix for pathology and tissue culture.
HPI/Surgical Indications:
This is a [63-year-old male with a history of hypertension, CAD, heart failure with preserved EF, bilateral NIMA inguinal hernia repairs a year ago who presents with a 3-day history of periumbilical and right-sided abdominal pain with associated
nausea and vomiting. He was tachycardic and hypotensive on arrival with an elevated lactate and leukocytosis concerning for septic shock secondary to perforated appendicitis diagnosed on CT. Risks/Benefits/Alternatives were discussed at length, and
the patient agreed to proceed with surgery after an initial period of resuscitation in the ICU.
Operative Findings: Perforated appendicitis with 3 small stool balls in the right lower quadrant near the base however the to base of the appendix was identified and appeared healthy enough that it was ligated with 2-0 PDS Endoloops. There was
prashant purulence in the pelvis right lower quadrant and up the right colic gutter which was irrigated and suctioned until clear. 19 [place] round Allen drain was inserted via the left lower quadrant port passed into the pelvis and up the right colic
gutter, this was secured at the skin with a 2-0 nylon suture. An additional 5 mm port was placed in the right upper quadrant to assist with exposure.
Procedure Description:
The patient was placed in the supine position, with the left arm tucked, and general anesthesia was induced. The abdomen was prepared and draped in a sterile fashion so as to expose the entire abdomen. A surgical time out was taken. Abdominal access
was obtained with a 12mm infra-umbilical Raoul Entry. After confirming no injury on entrance, two additional 5mm ports were placed in the suprapubic area just off midline and in the left lower quadrant. The patient was placed in Trendelenberg with
the right slightly up . The appendix was not readily identified but there was gross peritonitis and pus along the right colic gutter. The fold of Treves was identified and after careful dissection the distal appendix there was still difficult to
expose the base of the appendix. An additional 5 mm port was placed in the right upper quadrant which allowed further exposure. There were 3 small stool balls in the area. We were able to eventually identify the base of the appendix and track it
to the cecum. Thankfully, the base of the appendix appeared fairly healthy and so this was ligated with 2-0 PDS Endoloops. The appendix was divided using LigaSure as was the intervening mesentery. The area was focally's irrigated and suctioned
until clear. There was additional purulence up the right colic gutter to around the liver as well as in the pelvis. This was all suctioned until clear. A 19 [place] round Allen drain was then passed through the left lower quadrant port draped into
the pelvis and then up the right colic gutter. This was secured to the skin with a 2-0 nylon suture. The appendix, along with the fecaliths were placed in a specimen retrieval bag. Hemostasis was confirmed and the ports were removed under
visualization. The specimen was passed off the field. The umbilical port was closed with a [id number] 0-PDS and the skin for all three ports was closed with interrupted monocryls and covered with dermabond. The patient was awoken from
anesthesia in good condition and transported to the recovery area.
I was the attending physician and performed the procedure with the assistance of Dr. Stevens who was instrumental in providing tension counter tension as well as helping provide exposure of the appendix in this fairly challenging appendectomy. I was
present for all portions of the case
Edgar Hannah MD
== END 2023-12-29 14:56 | disposition home or self-care (01) | DRG 853 ==
LOC: 2 NORTH 13:51
PROVIDERS: Nurse Practitioner Primary Care; Physician Assistant; ADMITTING PHYSICIAN Internal Medicine; CONSULT PHYSICIAN Internal Medicine Critical Care Medicine; CONSULT PHYSICIAN Surgery; EMERGENCY PHYSICIAN Emergency Medicine; FAMILY PHYSICIAN Internal Medicine
PROC: 3E1M38Z Irrigation of Peritoneal Cavity using Irrigating Substance, Percutaneous Approach (ICD-10-PCS; 2023-12-24)
PROC: 0DTJ4ZZ Resection of Appendix, Percutaneous Endoscopic Approach (ICD-10-PCS; 2023-12-24)
DX: A41.9 Sepsis, unspecified organism (principal); K35.32 Acute appendicitis with perforation, localized peritonitis, and gangrene, without abscess; R65.21 Severe sepsis with septic shock; N17.9 Acute kidney failure, unspecified; E87.1 Hypo-osmolality and hyponatremia; I50.32 Chronic diastolic (congestive) heart failure; I42.8 Other cardiomyopathies; K56.7 Ileus, unspecified; I11.0 Hypertensive heart disease with heart failure; I44.7 Left bundle-branch block, unspecified
CPT/HCPCS: 36600; 74177; 80048; 80053; 81003; 81015; 82330; 82805; 82962; 83605; 83735; 84132; 84302; 85025; 85027; 85610; 86850; 86900; 86901; 87040; 87070; 87077; 87086; 87176; 87205; 93005; 96361; 96365; 96375; 96376; 97116; 97163; 99291; 99292; Q9967

== ENCOUNTER → 2024-11-21 07:10 | Outpatient (REF) | payer MEDICARE, SELFPAY | LOC: HWRCS 07:10 | PROVIDERS: ATTENDING PHYSICIAN Internal Medicine Cardiovascular Disease; FAMILY PHYSICIAN Internal Medicine | DX: I42.0 Dilated cardiomyopathy (principal) | CPT/HCPCS: 93306 ==

== ENCOUNTER → 2025-03-31 10:15 | Outpatient (REF) | payer MEDICARE, SELFPAY | LOC: HWRCS 10:15 | PROVIDERS: ATTENDING PHYSICIAN Internal Medicine Cardiovascular Disease; FAMILY PHYSICIAN Internal Medicine | DX: I42.8 Other cardiomyopathies (principal) | CPT/HCPCS: 93306 ==